=== PATIENT | female | born 1995 | race Two or more races ===

== ENCOUNTER 2020-08-30 17:24 | Emergency (ER) | payer MEDICAID, SELFPAY ==
[2020-08-30 18:05] VITALS: BP 122/72; PULSE 102; RESP 16; TEMP 36.9; O2SAT 100; BMI 21.5
[2020-08-30 18:55] VITALS: BP 106/62; PULSE 88; RESP 18; TEMP 36.9; O2SAT 99
--- NOTE | 2020-08-30 19:26 | ED.GENADULT ---
HPI - General Adult General Chief complaint: General Medical Stated complaint: R/O DVT/Rash Time Seen by Provider: 08/30/20 19:14 Source: patient Mode of arrival: ambulatory Limitations: no limitations History of Present Illness HPI narrative: Patient comes emergency room complaining of a rash her body that is been present for 11 days. Patient states it is very itchy, started in her back and trunk. Patient thought it was due to a new sweater she used. However the hives are not going away. Patient states that now she has hives and itching in her face, groin, and upper thighs bilaterally. Nothing in the lower extremities. Also, patient states that she was seen at [facility] approximately 1 week ago. Patient went there because she had occasional chest pain. According to the patient, all of her blood work came back normal, however they told her that they wanted to do a bilateral Doppler of her lower extremities to rule out DVT. Patient states that her complain was occasional Charley horses at night. Patient states she has never had blood clot issues, no family history of DVTs, no leg swelling, no leg pain other than the muscular cramping at night, no redness, no shortness of breath. Patient states that she has 3 left [facility] 1 week ago, she has not had any chest pain, no leg complaints MD complaint: Rash Related Data Previous Rx's Medication Instructions Recorded cetirizine 10 mg PO DAILY #5 tab 08/30/20 prednisone 50 mg PO DAILY #4 tab 08/30/20 Allergies Allergy/AdvReac Type Severity Reaction Status Date / Time No Known Allergies Allergy Verified 08/30/20 18:12 Review of Systems Review of Systems: Constitutional : No Weight loss, No Fever, No Chills, No Night Sweats, No Fatigue, No Malaise ENT/Mouth : No Hearing loss, No Ear Pain, No Nasal Congestion, No Sinus Pain, No Hoarseness, No sore throat, No Rhinorrhea, No Swallowing Difficulty Eyes: No Eye Pain, No Swelling, No Redness, No Foreign Body, No Discharge, No Vision Changes Cardiovascular : No Chest Pain, No SOB, No Dyspnea on Exertion, No Orthopnea, No Edema, No Palpitations Respiratory : No Cough, No Sputum, No Wheezing, No Smoke Exposure, No Dyspnea Gastrointestinal : No Nausea, No Vomiting, No Diarrhea, No Constipation, No abdominal Pain, No Hematochezia, No Melena Genitourinary : no irregular bleeding, No Dysuria, No Urinary Frequency, No Hematuria, No Urinary Incontinence, No Urgency, No Flank Pain, No Urinary Flow Changes, No Hesitancy Musculoskeletal : No joint pain, No Myalgias, No Joint Swelling Skin : Hives in chest, torso, abdomen, groin Neuro : No Weakness, No Numbness, No Paresthesias, No Loss of Consciousness, No Dizziness, No Headache Psych : No Anxiety/Panic, No Depression, No SI/HI/AH/VH, No Social Issues, Heme/Lymph: No Bruising, No Bleeding,No Lymphadenopathy Endocrine : No Polyuria, No Polydipsia, No Temperature Intolerance [facility] Past Medical History Attestation statement: The following information was validated with the patient. Medical History Pacemaker Seasonal allergies Social History Social History Advance Directives: No Advance Directives Information Provided: Yes Physical Exam Vital Signs: Vital Signs: Last Vital Signs Temp 98.5 F 08/30/20 18:55 Pulse 88 08/30/20 18:55 Resp 18 08/30/20 18:55 BP 106/62 08/30/20 18:55 Pulse Ox 99 08/30/20 18:55 Body Mass Index 21.5 Appearance: Alert. Oriented X3. No acute distress. Eyes: Pupils equal, round and reactive to light. ENT: Pharynx normal. Neck: Normal inspection. Neck supple. No lymph nodes noted. No crepitus CVS: Normal heart rate and rhythm. Pulses normal. Normal S1 and S2 Respiratory: No respiratory distress. Breath sounds normal. No Wheezing. No rales Abdomen: Soft and nontender. No rigidity. No distention. good BS x4 Skin: Skin warm and dry. Multiple scratch armando and the chest, abdomen, back, groins, , patchy and hives like rash as above mentioned Extremities: No lower extremity edema. No lower extremity edema. No Lacerations. No Rash Neuro: Oriented X 3. No motor deficit. No sensory deficit. Moving all extermities. No slurred speech. Course Course Course Narrative: I discussed with the patient that we will go ahead and start prednisone and Benadryl to help her with the itchiness, unlikely that the patient is having a generalized allergic reaction since it has been ongoing for 11 days now, and it is not diffuse. The rash does not resemble bedbug bites or scabies. Also discussed with the patient, the charley horses are not necessarily an indication to get a Doppler ultrasound. Patient has no signs of symptoms of a DVT. Patient's Wells criteria for DVT score is -2 Scores Wells DVT Alternative Dx as likely as or more likely than DVT: -2 Score: -2 2-tier Risk: unlikely risk (5%) 3-tier Risk: low risk (3%) Discharge Plan Discharge Clinical Impression: Rash Patient Disposition: Home, Self-Care Instructions: Acute Rash (ED) Additional Instructions: Please follow-up with your primary care physician tomorrow. If you have any worsening or new symptoms, please return to the emergency room or call 911 Prescriptions: New prednisone 50 mg tablet 50 mg PO DAILY Qty: 4 RF: 0 cetirizine 10 mg tablet 10 mg PO DAILY Qty: 5 RF: 0
[2020-08-30] MEDS: predniSONE 20 MG TABLET 60 MG PO (19:47)
[2020-08-30] MEDS: diphenhydrAMINE HCL 25 MG TABLET 50 MG PO (19:47)
== END 2020-08-30 19:54 | disposition home or self-care (01) ==
PROVIDERS: Emergency Provider Emergency Medicine
DX: R21 Rash and other nonspecific skin eruption (principal); R07.9 Chest pain, unspecified; Z79.899 Other long term (current) drug therapy
CPT/HCPCS: 99283; Q0163

== ENCOUNTER 2020-12-18 09:12 | Outpatient (REF) | payer MEDICAID, SELFPAY ==
--- NOTE | ~2020-12-18 | US_ITS ---
EXAMINATION: US DIAGNOSTIC ULTRASOUND BREAST, RIGHT CLINICAL INFORMATION: 24-year-old with small palpable mass noted by patient superior right breast mid depth for approximately 1 month. No discharge. No recent trauma. No family history breast cancer. No prior breast imaging. Patient has had weight loss over 50 pounds past year. COMPARISON: None. TECHNIQUE: Ultrasound right breast is targeted to the area of clinical concern upper breast. Patient is imaged both supine and upright. Grayscale imaging and color Doppler are performed without and with harmonics. FINDINGS: There is no focal suspicious finding. There is no cystic or solid mass, architectural abnormality, duct ectasia, or edema in the soft tissue planes. Results are discussed with the patient at time of visit. Patient should be managed based on the clinical impression. If clinically indicated, further evaluation may be considered with surgical consult. Decision to proceed with biopsy should be based on clinical grounds and degree of clinical concern. US/US breast RT limited IMPRESSION: Unremarkable. No ultrasound correlate for patient's palpable concern. ASSESSMENT: BI-RADS 1: Negative RECOMMENDATION: Patient should be managed based on the clinical impression. If clinically indicated, further evaluation may be considered with surgical consult. Decision to proceed with biopsy should be based on clinical grounds and degree of clinical concern.
== END 2020-12-18 09:13 | disposition home or self-care (01) ==
LOC: HO.MAMMO 09:12
PROVIDERS: Visit Provider Nurse Practitioner Family
DX: N63.11 Unspecified lump in the right breast, upper outer quadrant (principal)
CPT/HCPCS: 76642

== ENCOUNTER 2021-10-26 15:23 | Emergency (ER) | payer MEDICAID, SELFPAY | END 2021-10-26 16:26 | disposition left against medical advice (07) | PROVIDERS: Emergency Provider Emergency Medicine | DX: S91.14 Puncture wound with foreign body of toe without damage to nail (principal); X58.XXXA Exposure to other specified factors, initial encounter; Y93.9 Activity, unspecified; Y92.9 Unspecified place or not applicable; Y99.9 Unspecified external cause status ==

== ENCOUNTER 2021-10-27 15:22 | Emergency (ER) | payer MEDICAID, SELFPAY ==
[2021-10-27 15:30] VITALS: BP 129/82; PULSE 111; RESP 18; O2SAT 100; BMI 23.8
--- NOTE | 2021-10-27 15:54 | ED.WOUNDLAC ---
HPI - Wound/Laceration General Chief Complaint: Wound/Laceration Stated Complaint: wound/lac on right toe Time Seen by Provider: 10/27/21 15:40 Source: patient Mode of arrival: ambulatory Limitations: no limitations History of Present Illness HPI narrative: 25 y/o female presenting to the ER for evaluation of right great toe pain x1 month. She reports the pain started with a small crack on the medial edge of her toe but the crack has since gotten wider with dark skin in the middle. She also reports redness and pain on the medial aspect of the great toe nail. She is not diabetic. She denies any trauma. She has been using topical athletes foot cream with worsening pain and itching. Onset (ago): week(s) Extremity Location: right: foot Place: home Patient tetanus UTD: Yes Associated symptoms: pain Related Data Previous Rx's Medication Instructions Recorded cetirizine 10 mg tablet 10 mg PO DAILY #5 tab 08/30/20 prednisone 50 mg tablet 50 mg PO DAILY #4 tab 08/30/20 amoxicillin 500 mg-potassium 1 tab PO BID #10 tab 10/27/21 clavulanate 125 mg tablet (Augmentin) mupirocin 2 % topical ointment 1 appl TOPICAL BID #22 g 10/27/21 Allergies Allergy/AdvReac Type Severity Reaction Status Date / Time No Known Allergies Allergy Verified 10/27/21 15:29 Review of Systems Review of Systems: Constitutional: No Fever, No Chills s Cardiovascular: No Chest Pain, No SOB Gastrointestinal: No Nausea, No Vomiting Musculoskeletal: No joint pain, No Myalgias Skin: +Skin Lesions, No rash Neuro: No Weakness, No Numbness Psych: No Anxiety/Panic Heme/Lymph: No Bruising, No Lymphadenopathy PMFSH Past Medical History Medical History Pacemaker Seasonal allergies Social History Social History Advance Directives: No Advance Directives Information Provided: No Physical Exam Vital Signs: Vital Signs: Last Vital Signs Pulse 111 H 10/27/21 15:30 Resp 18 10/27/21 15:30 BP 129/82 10/27/21 15:30 Pulse Ox 100 10/27/21 15:30 BMI result Body Mass Index 23.8 Appearance: Alert. Oriented X3. No acute distress. HEENT: normal inspection CVS: Normal heart rate and rhythm. Pulses normal. Respiratory: No respiratory distress. Skin: Skin warm and dry. Normal skin color. Normal skin turgor. No rashes. Extremities: medial right great toe with callus with cracked skin and hyperpigmented material below, tender to touch. medial great toe nail bed with erythema and tenderness. NV intact. Neuro: Oriented X 3. No motor deficit. No sensory deficit. Course Course Course Narrative: 25-year-old female presenting to the ER with right great toe pain. The skin is cracked and callus at the medial aspect with some erythema of the nail bed. Possible cellulitis. Will give topical and oral treatment. Will refer to her primary care doctor for follow-up. Stable for DC home. Discharge Plan Discharge Clinical Impression: Callus of toe, Cellulitis of great toe Patient Disposition: Home, Self-Care Instructions: Acute Wounds (DC) Additional Instructions: If you develop new or worsening symptoms call 911 or come back to the ER for further evaluation. Prescriptions: New mupirocin 2 % ointment 1 appl topical BID Qty: 22 0RF amoxicillin-pot clavulanate [Augmentin] 500-125 mg tablet 1 tab PO BID Qty: 10 0RF No Action prednisone 50 mg tablet 50 mg PO DAILY Qty: 4 0RF cetirizine 10 mg tablet 10 mg PO DAILY Qty: 5 0RF
== END 2021-10-27 16:30 | disposition home or self-care (01) ==
PROVIDERS: Emergency Provider Emergency Medicine
DX: L84 Corns and callosities (principal); L03.031 Cellulitis of right toe; M79.674 Pain in right toe(s)
CPT/HCPCS: 99283

== ENCOUNTER 2021-12-06 09:21 | Outpatient (RCR) | payer MEDICAID, SELFPAY | END 2022-03-19 10:00 | disposition home or self-care (01) | LOC: HO.WCC 09:21 | PROVIDERS: PCP Internal Medicine; Visit Provider Surgery | DX: S91.101D Unspecified open wound of right great toe without damage to nail, subsequent encounter (principal); L03.032 Cellulitis of left toe; Z79.2 Long term (current) use of antibiotics | CPT/HCPCS: 97597; 99212; 99213 ==

== ENCOUNTER 2022-02-07 12:39 | Inpatient (IN) | payer MEDICAID, SELFPAY ==
--- NOTE | ~2022-02-07 | CT_ITS ---
EXAMINATION: CT FOOT WITH CONTRAST, RIGHT CLINICAL INFORMATION: Cellulitis. Ulcer. Rule out osteomyelitis. COMPARISON: 02/07/2022 radiograph TECHNIQUE: Multidetector volumetric imaging of the right foot performed without IV contrast. Coronal and sagittal reformatted images are obtained and reviewed. This CT examination was performed using dose optimization techniques as appropriate, variously including the following: *Automated exposure control *Adjustment of mA and/or kV according to patient size (this includes techniques or standardized protocols for targeted exams where dose is matched to indication/reason for exam; i.e. extremities or head) *Use of iterative reconstruction technique DLP: 168 mGy-cm FINDINGS: Mild soft tissue swelling of the distal aspect of the first digit. Foci of gas are noted along the nailbed. No osseous erosion. No fractures. Alignment maintained throughout the foot. No fluid collection in the soft tissues. CT/CT foot RT w con IMPRESSION: Mild soft tissue swelling of the first digit. No associated osseous abnormality. No osseous erosion. No fracture.
--- NOTE | ~2022-02-07 | US_ITS ---
EXAMINATION: ANKLE-BRACHIAL INDICES SINGLE LEVEL PULSE VOLUME RECORDING ARTERIAL DUPLEX BILATERAL LEGS CLINICAL INFORMATION: Nonhealing right leg ulcer COMPARISON: None TECHNIQUE: Ankle-brachial indices and PVR at the ankle were obtained. Duplex Doppler of the bilateral lower extremity arterial systems was performed. FINDINGS: RIGHT: Ankle-brachial index: 0.92 PVR: Normal Common femoral: PSV 200 cm/s. Triphasic waveform. Deep femoral: PSV 146 cm/s. Triphasic waveform. Proximal superficial femoral: PSV 163 cm/s. Triphasic waveform. Mid superficial femoral: PSV 131 cm/s. Triphasic waveform. Distal superficial femoral: PSV 93 cm/s. Triphasic waveform. Popliteal: PSV 72 cm/s. Triphasic waveform. Posterior tibial: PSV 128 cm/s. Triphasic waveform. LEFT: Ankle-brachial index: 1.19 PVR: Normal Common femoral: PSV 181 cm/s. Triphasic waveform. Deep femoral: PSV 111 cm/s. Triphasic waveform. Proximal superficial femoral: PSV 120 cm/s. Tricuspid waveform. Mid superficial femoral: PSV 127 cm/s. Triphasic waveform. Distal superficial femoral: PSV 111 cm/s. Triphasic waveform. Popliteal: PSV 65 cm/s. Triphasic waveform. Posterior tibial: PSV 168 cm/s. Triphasic waveform. US/US arterial duplex LE BI IMPRESSION: No convincing evidence of hemodynamically significant peripheral arterial disease. The TRU on the right is 0.92 which is borderline. The TRU on the left is 1.19. There are hyperemic multiphasic waveforms bilaterally which can be seen in small vessel vascular bed dilation (such as cellulitis).
--- NOTE | ~2022-02-07 | CT_ITS ---
EXAMINATION: CT ANGIOGRAM ABDOMEN AND PELVIS WITH RUN-OFF CLINICAL INFORMATION: Nonhealing right lower extremity ulceration. COMPARISON: Noninvasive arterial ultrasound from 02/11/2022 TECHNIQUE: Multiple axial images were obtained through the abdomen, pelvis, and lower extremities following the administration of 100 mL of Omnipaque 350 intravenous contrast. Sagittal, coronal, and MIP oblique sagittal reformatted images were obtained on the CT workstation, uploaded to PACS, and reviewed. Images were evaluated on independent dedicated 3-D workstation and 3-D images were reconstructed with concurrent radiologist supervision and subsequently interpreted. This CT examination was performed using dose optimization techniques as appropriate, variously including the following: *Automated exposure control *Adjustment of mA and/or kV according to patient size (this includes techniques or standardized protocols for targeted exams where dose is matched to indication/reason for exam; i.e. extremities or head) *Use of iterative reconstruction technique DLP: 678 mGy-cm FINDINGS: VASCULATURE: Aorta: Normal in caliber. No significant atherosclerotic plaque. Celiac axis, superior mesenteric artery, inferior mesenteric artery and bilateral renal arteries are patent without significant stenosis. Right iliac arteries: Common iliac, external iliac and internal iliac arteries are patent without significant stenosis. Left iliac arteries: Common iliac, external iliac and internal iliac arteries are patent without significant stenosis. Right lower extremity: Common femoral artery is widely patent without significant stenosis. Superficial femoral artery is patent without significant stenosis. Popliteal artery is patent without significant stenosis. Anterior tibial artery occludes in the distal calf. Posterior tibial artery occludes in the proximal to mid calf. Peroneal artery occludes in the proximal calf. Collateral flow is seen opacifying the plantar arteries of the foot. Dorsalis pedis artery is not visualized Left lower extremity: Common femoral artery is widely patent without significant stenosis. Superficial femoral artery is patent without significant stenosis. Popliteal artery is patent without significant stenosis. Anterior tibial artery is completely occluded throughout the calf. Posterior tibial artery is patent through the calf with patent flow is seen extending into the plantar arteries of the foot. Peroneal artery occludes in the proximal calf NONVASCULAR: Lung bases are clear. Solid abdominal organs are unremarkable. Bowel loops are unremarkable. No free fluid seen in the abdomen and pelvis. Urinary bladder is unremarkable. No pathologic lymphadenopathy or mass lesion seen in the abdomen and pelvis. Osseous structures are intact. CT/CT angio abd aorta runoff IMPRESSION: 1. 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 There is occlusion of the right anterior tibial, posterior tibial and peroneal arteries. There is occlusion of the left anterior tibial and peroneal arteries with patent flow in the left posterior tibial artery 2. No significant atherosclerotic plaque is seen throughout the remaining arterial vessels. The aorta, bilateral iliac, femoral and popliteal arteries are widely patent without stenosis or vessel irregularity
--- NOTE | ~2022-02-07 | US_ITS ---
EXAMINATION: ANKLE-BRACHIAL INDICES SINGLE LEVEL PULSE VOLUME RECORDING ARTERIAL DUPLEX BILATERAL LEGS CLINICAL INFORMATION: Nonhealing right leg ulcer COMPARISON: None TECHNIQUE: Ankle-brachial indices and PVR at the ankle were obtained. Duplex Doppler of the bilateral lower extremity arterial systems was performed. FINDINGS: RIGHT: Ankle-brachial index: 0.92 PVR: Normal Common femoral: PSV 200 cm/s. Triphasic waveform. Deep femoral: PSV 146 cm/s. Triphasic waveform. Proximal superficial femoral: PSV 163 cm/s. Triphasic waveform. Mid superficial femoral: PSV 131 cm/s. Triphasic waveform. Distal superficial femoral: PSV 93 cm/s. Triphasic waveform. Popliteal: PSV 72 cm/s. Triphasic waveform. Posterior tibial: PSV 128 cm/s. Triphasic waveform. LEFT: Ankle-brachial index: 1.19 PVR: Normal Common femoral: PSV 181 cm/s. Triphasic waveform. Deep femoral: PSV 111 cm/s. Triphasic waveform. Proximal superficial femoral: PSV 120 cm/s. Tricuspid waveform. Mid superficial femoral: PSV 127 cm/s. Triphasic waveform. Distal superficial femoral: PSV 111 cm/s. Triphasic waveform. Popliteal: PSV 65 cm/s. Triphasic waveform. Posterior tibial: PSV 168 cm/s. Triphasic waveform. US/US TRU complete IMPRESSION: No convincing evidence of hemodynamically significant peripheral arterial disease. The TRU on the right is 0.92 which is borderline. The TRU on the left is 1.19. There are hyperemic multiphasic waveforms bilaterally which can be seen in small vessel vascular bed dilation (such as cellulitis).
--- NOTE | ~2022-02-07 | XR_ITS ---
EXAMINATION: XR FOOT, RIGHT CLINICAL INFORMATION: Right foot redness with question of osteomyelitis COMPARISON: Left foot radiographs 01/06/2020 TECHNIQUE: AP, lateral, and oblique views of the right foot. FINDINGS: There is soft tissue swelling present around the distal phalanx of the first digit but there are no convincing signs of osteomyelitis. No other abnormalities are seen. XR/XR foot RT 2V IMPRESSION: Soft tissue swelling without evidence of osteomyelitis
[2022-02-07 12:59] VITALS: BP 125/82; PULSE 114; RESP 18; TEMP 36.8; O2SAT 98; BMI 24.7
--- NOTE | 2022-02-07 13:45 | PC.NURSE ---
Pt reports chronic right great toe wound, now spreading to other toes x 3 months. Also reports 2 months ago had debridement and unable to make follow up appt. Wound site marked by wound clinic [facility]. +pedal pulse, warm to touch, red in appearance
[2022-02-07 14:04] LABS: MANUAL DIFF FLAG NO
[2022-02-07 14:07] LABS: Basophils Percent Auto 0.2 % (0-2); Eosinophils Absolute Auto 0.4 X10*3/uL (0.0-0.4); Eosinophils Percent Auto 3.3 % (0-4); Hemoglobin 14.9 g/dl (12.0-16.0); Imm Gran Abs Auto 0.05 X10*3/uL (0.00-0.03); Imm Gran Pct Auto 0.4 % (0.0-0.4); Lymphocytes Absolute Auto 3.2 X10*3/uL (1.2-4.9); Lymphocytes Percent Auto 24.5 % (20-40); Mean Corpuscular HGB Conc 32.4 g/dl (31.0-35.0); Mean Corpuscular Hemoglobin 30.5 pg (27.0-33.0); Mean Corpuscular Volume 94.1 fL (80.0-98.0); Mean Platelet Volume 8.7 fL (9.4-12.3); Monocytes Percent Auto 7.7 % (2-11); Neutrophils Absolute Auto 8.3 x10*3/uL (2.0-8.3); Neutrophils Percent Auto 63.9 % (45-73); Platelet Count 542 X10*3/uL (160-400); Red Blood Count 4.89 X10*6/uL (4.20-5.50); Red Cell Distribution Width 13.5 % (11.0-16.0)
[2022-02-07 14:20] LABS: Alanine Aminotransferase 12 U/L (0-31); Albumin Level 4.9 g/dL (3.5-5.0); Alkaline Phosphatase 89 U/L (39-117); Anion Gap 13 (12-20); Aspartate Amino Transferase 18 U/L (5-31); Bilirubin Total 0.4 mg/dL (0.0-1.0); Blood Urea Nitrogen 9 mg/dL (9-16); C Reactive Protein 0.61 mg/dL (< or = 0.50); Calcium 10.4 mg/dL (8.4-10.2); Carbon Dioxide 28 mmol/L (22-29); Chloride 103 mmol/L (96-108); Creatinine Clr Calc Pharmacy 84.3; Estimated Glomerular Filt Rate > 60; Glucose Random 95 mg/dL (60-115); Potassium 4.2 mmol/L (3.3-5.1); Sodium 140 mmol/L (135-145); Total Protein 8.3 g/dL (6.5-8.0)
[2022-02-07 14:21] LABS: Lactic Acid 1.6 mmol/L (0.5-2.0)
[2022-02-07 14:25] LABS: COVID-19 Test Negative (Negative)
--- NOTE | 2022-02-07 14:37 | ED_ITS ---
HPI - General Adult General Chief complaint: Wound/Laceration Stated complaint: R foot infected Time Seen by Provider: 02/07/22 13:13 Source: patient Mode of arrival: ambulatory Limitations: no limitations History of Present Illness HPI narrative: 26-year-old female presents to the ED for right foot infection. Patient has had a chronic right great toe wound that began as a open callous and fungal and now redness redness or other toes. Patient states foot/toe also warm. Patient denies any history of diabetes or IV drug use. Patient was sent from the ED by Wound physician for further evaluation. Related Data Home Medications Medication Instructions Recorded Confirmed acetaminophen 325 mg tablet 650 mg PO Q6H PRN Pain 02/07/22 02/07/22 aspirin 81 mg chewable tablet 81 mg PO DAILY PRN Pain 02/07/22 02/07/22 cephalexin 500 mg capsule 1 cap PO QID 02/07/22 02/07/22 Allergies Allergy/AdvReac Type Severity Reaction Status Date / Time No Known Allergies Allergy Verified 10/27/21 15:29 Review of Systems Review of Systems: Right foot infection. Yes all other systems are reviewed and are negative [facility] Past Medical History Medical History Complete heart block History of cardiac pacemaker Pacemaker Seasonal allergies Family History Family History Mother Prediabetes Social History Social History Alcohol intake: current Alcohol intake frequency: holidays/special occasions o nly Alcohol type: wine Patient Tobacco Use Status: Never used Tobacco Use of substances other than those prescribed or required for medical reasons: Yes Substance Use Type: Marijuana Advance Directives: No Advance Directives Information Provided: No Patient : No Physical Exam ED Vital Signs: Vital Signs - 24 hr 02/07/22 12:59 02/07/22 14:45 02/07/22 15:32 Temperature 98.3 F 98.4 F 98.2 F Pulse Rate 114 H 84 89 Respiratory Rate 18 16 16 Blood Pressure 125/82 116/69 111/65 Pulse Oximetry 98 99 99 Oxygen Delivery Method Room Air Room Air Room Air 02/07/22 17:34 Temperature Pulse Rate 95 Respiratory Rate 18 Blood Pressure 105/63 Pulse Oximetry 98 Oxygen Delivery Method Room Air BMI result Body Mass Index 24.7 Const General: cooperative, healthy appearing, comfortable, no acute distress, well developed, alert, awake and Physically active Orientation/consciousness: patient oriented x3 [facility] Head: Yes normal to inspection, Yes No palpable skull fracture present, Yes normocephalic, Yes atraumatic and No abrasion Eyes General: appearance normal, both eyes and all related structures Neck Neck: Yes normal visual inspection, Yes full ROM, Yes no lymphadenopathy, Yes no meningeal signs, Yes trachea midline, Yes supple, No anterior neck swelling and No tender Chest Chest palpation & inspection: normal inspection of the chest and normal palpation of entire chest wall Resp Effort & Inspection: normal respiratory effort and able to speak in complete sentences Cardio Jugular venous distension: no JVD Heart sounds: S1 normal heart sound present and S2 normal heart sound present GI Inspection: Yes normal to inspection and No abdominal wall ecchymosis Palpation (GI): Soft to palpation, not firm, nontender, no guarding and not rigid General: No CVA tenderness and Yes no CVA tenderness Back/Spine/Pelvis Back: no CVA tenderness, No CVA tenderness and No back tenderness Skin Other: foot cellulitis Neuro General: patient oriented x3, gait normal, tone normal, no meningeal signs and CN's II-XI intact bilaterally Cranial nerves: Yes CN's II-XII intact bilaterally Extrem Other: Vascular neuro exam intact Psych Appearance: grossly normal, well kempt and not disheveled Course Course Course Narrative: Will send for labs and have foot x-ray. Patient well-appearing Reevaluation(s) Reevaluation #1: Patient admitted to hospitalist for cellulitis. Labs are normal. Negative white blood cell count and x-ray negative for osteomyelitis. Due to dry gangrene. Dr. Farnsworth informed ARACELIS barnhart earlier in the shift she wanted patient admitted for IV antibitiocs. Time: 21:50 Medical Decision Making [facility] Narrative Medical decision making narrative: Cellulitits Lab Data Result diagrams: 02/07/22 13:54 02/07/22 13:54 Labs: Lab Results 02/07/22 02/07/22 02/07/22 Range/Units 13:54 13:54 13:54 WBC 13.0 H (4.8-10.8) X10*3/uL RBC 4.89 (4.20-5.50) X10*6/uL Hgb 14.9 (12.0-16.0) g/dl Hct 46.0 (37.0-47.0) % MCV 94.1 (80.0-98.0) fL MCH 30.5 (27.0-33.0) pg MCHC 32.4 (31.0-35.0) g/dl RDW 13.5 (11.0-16.0) % Plt Count 542 H (160-400) X10*3/uL MPV 8.7 L (9.4-12.3) fL Immature Gran % (Auto) 0.4 (0.0-0.4) % Neut % (Auto) 63.9 (45-73) % Lymph % (Auto) 24.5 (20-40) % [place] % (Auto) 7.7 (2-11) % Eos % (Auto) 3.3 (0-4) % Baso % (Auto) 0.2 (0-2) % Lymph # (Auto) 3.2 (1.2-4.9) X10*3/uL [place] # (Auto) 1.0 (0.1-1.2) X10*3/uL Eos # (Auto) 0.4 (0.0-0.4) X10*3/uL Baso # (Auto) 0.0 (0.0-0.2) X10*3/uL Abs Immat Gran (auto) 0.05 H (0.00-0.03) X10*3/uL Absolute Neuts (auto) 8.3 (2.0-8.3) x10*3/uL Absolute Nucleated RBC 0.000 (0.0-0.012) X10*3/uL Nucleated RBC % (auto) 0.0 (0.0-0.2) /100WBC ESR 10 (0-20) MM/HR Sodium 140 (135-145) mmol/L Potassium 4.2 (3.3-5.1) mmol/L Chloride 103 (96-108) mmol/L Carbon Dioxide 28 (22-29) mmol/L Anion Gap 13 (12-20) BUN 9 (9-16) mg/dL Creatinine 0.87 (0.5-1.4) mg/dL Estim Creat Clear Calc 84.3 Estimated GFR > 60 Random Glucose 95 (60-115) mg/dL Lactic Acid (0.5-2.0) mmol/L Calcium 10.4 H (8.4-10.2) mg/dL Total Bilirubin 0.4 (0.0-1.0) mg/dL AST 18 (5-31) U/L ALT 12 (0-31) U/L Alkaline Phosphatase 89 (39-117) U/L C-Reactive Protein 0.61 H (< or = 0.50) mg/dL Total Protein 8.3 H (6.5-8.0) g/dL Albumin 4.9 (3.5-5.0) g/dL COVID-19 (ANGELO) (Negative) COVID-19 Clin Com 02/07/22 02/07/22 Range/Units 13:54 13:54 WBC (4.8-10.8) X10*3/uL RBC (4.20-5.50) X10*6/uL Hgb (12.0-16.0) g/dl Hct (37.0-47.0) % MCV (80.0-98.0) fL MCH (27.0-33.0) pg MCHC (31.0-35.0) g/dl RDW (11.0-16.0) % Plt Count (160-400) X10*3/uL MPV (9.4-12.3) fL Immature Gran % (Auto) (0.0-0.4) % Neut % (Auto) (45-73) % Lymph % (Auto) (20-40) % [place] % (Auto) (2-11) % Eos % (Auto) (0-4) % Baso % (Auto) (0-2) % Lymph # (Auto) (1.2-4.9) X10*3/uL [place] # (Auto) (0.1-1.2) X10*3/uL Eos # (Auto) (0.0-0.4) X10*3/uL Baso # (Auto) (0.0-0.2) X10*3/uL Abs Immat Gran (auto) (0.00-0.03) X10*3/uL Absolute Neuts (auto) (2.0-8.3) x10*3/uL Absolute Nucleated RBC (0.0-0.012) X10*3/uL Nucleated RBC % (auto) (0.0-0.2) /100WBC ESR (0-20) MM/HR Sodium (135-145) mmol/L Potassium (3.3-5.1) mmol/L Chloride (96-108) mmol/L Carbon Dioxide (22-29) mmol/L Anion Gap (12-20) BUN (9-16) mg/dL Creatinine (0.5-1.4) mg/dL Estim Creat Clear Calc Estimated GFR Random Glucose (60-115) mg/dL Lactic Acid 1.6 (0.5-2.0) mmol/L Calcium (8.4-10.2) mg/dL Total Bilirubin (0.0-1.0) mg/dL AST (5-31) U/L ALT (0-31) U/L Alkaline Phosphatase (39-117) U/L C-Reactive Protein (< or = 0.50) mg/dL Total Protein (6.5-8.0) g/dL Albumin (3.5-5.0) g/dL COVID-19 (ANGELO) Negative (Negative) COVID-19 Clin Com See Note Discharge Plan Discharge Clinical Impression: Cellulitis Patient Disposition: Admitted As Inpatient
[2022-02-07 14:45] VITALS: BP 116/69; PULSE 84; RESP 16; TEMP 36.9; O2SAT 99
[2022-02-07 15:07] LABS: Erythrocyte Sedimentation Rate 10 MM/HR (0-20)
[2022-02-07 15:32] VITALS: BP 111/65; PULSE 89; RESP 16; TEMP 36.8; O2SAT 99
[2022-02-07] MEDS: Piperacillin Sodium/Tazobactam 3.375 GM in 0.9 % Sodium Chloride 50 ML IV ×2 (17:31→23:31)
[2022-02-07 17:34] VITALS: BP 105/63; PULSE 95; RESP 18; O2SAT 98
--- NOTE | 2022-02-07 17:59 | PHA.MEDREC ---
Pharmacy Consult ? Medication Reconciliation Pharmacy has completed the medication reconciliation. Patient reports that she has one day left of cephalexin. She has been taking APAP and ASA for pain PRN. Martha Gale, ZulayD
--- NOTE | 2022-02-07 18:11 | PM.IMHP ---
History of Present Illness Date of Service: 02/07/22 Chief Complaint: foot infection 26yo F with history of heart block s/p PPM at age of 7yo sent in to [facility] ED from the Wound Clinic due to concern of R foot infection requiring IV antibiotics. This all started 7 months ago with a laceration to the medial R 1st toe that she was advised to close with Super Glue. Since then, she developed wound there that drains clear yellow liquid and now is covered with dry eschar. She has taken 3 courses of oral antibiotics for infection of the area, most recently cephalexin. Over the last 3 weeks, she has had worsening redness of the R 1st toe that has spread to her forefoot as well as to her 2nd through 5th toes. Her other foot and hands are completely normal. Denies DM2, neuropathy, or IDU. No fever, chills, nausea, or vomiting. In the ED, a plain film showed no evidence of osteomyelitis. Blood cultures were drawn and she was given IV vancomycin and piperacillin-tazobactam. WBC was elevated at 13.0 but she was not sepitc. Review of Systems Review of Systems: Yes all other systems are reviewed and are negative [facility] Medical History Complete heart block History of cardiac pacemaker Pacemaker Seasonal allergies Family History Mother Prediabetes Social History Alcohol intake: current Alcohol intake frequency: holidays/special occasions only Alcohol type: wine Patient Tobacco Use Status: Never used Tobacco Use of substances other than those prescribed or required for medical reasons: Yes Substance Use Type: Marijuana Advance Directives: No Advance Directives Information Provided: No Patient : No Meds Allergies Allergy/AdvReac Type Severity Reaction Status Date / Time No Known Allergies Allergy Verified 10/27/21 15:29 Active Medications: Current Medications Acetaminophen (Acetaminophen 325 Mg Tablet) 650 mg PO Q6H PRN PRN Reason: Pain, Mild (Pain Scale 1-3) Vancomycin HCl 1,500 mg/ (Sodium Chloride) 500 mls @ 333.333 mls/hr IV ONCE ONE Stop: 02/07/22 18:46 Piperacillin Sod/Tazobactam (Sod 3.375 gm/ Sodium Chloride) 50 mls @ 100 mls/hr IV Q6H [facility] Ondansetron HCl (Ondansetron Hcl 4 Mg/2 Ml Vial) 4 mg IVPUSH Q8H PRN PRN Reason: Nausea and Vomiting Pharmacy Consult (Consult Rx Vancomycin Dosing) 1 each MISCELLANE DAILY PRN PRN Reason: Consult order Sodium Chloride (0.9 % Sodium Chloride Flush 3 Ml Syringe) 3 ml IVFLUSH QSHIFT [facility] Home Medications Medication Instructions Recorded Confirmed Last Taken Type acetaminophen 325 mg tablet 650 mg PO Q6H PRN Pain 02/07/22 02/07/22 Unknown History aspirin 81 mg chewable tablet 81 mg PO DAILY PRN Pain 02/07/22 02/07/22 Unknown History cephalexin 500 mg capsule 1 cap PO QID 02/07/22 02/07/22 02/06/22 History Physical Exam Vital Signs and Narrative: Vital Signs: Last Vital Signs Temp 98.2 F 02/07/22 15:32 Pulse 95 02/07/22 17:34 Resp 18 02/07/22 17:34 BP 105/63 02/07/22 17:34 Pulse Ox 98 02/07/22 17:34 O2 Del Method 02/07/22 17:34 BMI result Body Mass Index 24.7 Gen: in no acute distress HEENT: sclera anicteric, moist mucus membranes Neck: supple Lungs: clear to auscultation bilaterally Heart: regular rate and rhythm, no murmurs Abd: soft, non-tender, non-distended Ext: no edema Skin: dry eschar to R mediall 1st toe, erythema/tenderness of 1st toe + medial forefoot, as well as distal 2/3 of toes 2-5 Neuro: alert and oriented x3, no focal findings Psych: appropriate affect Results Labs CBC and Chem 7: 02/07/22 13:54 02/07/22 13:54 Labs: Laboratory Results - last 24 hr 02/07/22 02/07/22 02/07/22 13:54 13:54 13:54 MCV 94.1 MCH 30.5 MCHC 32.4 RDW 13.5 Plt Count 542 H MPV 8.7 L Immature Gran % (Auto) 0.4 Neut % (Auto) 63.9 Lymph % (Auto) 24.5 [place] % (Auto) 7.7 Eos % (Auto) 3.3 Baso % (Auto) 0.2 Lymph # (Auto) 3.2 [place] # (Auto) 1.0 Eos # (Auto) 0.4 Baso # (Auto) 0.0 Abs Immat Gran (auto) 0.05 H Absolute Neuts (auto) 8.3 Absolute Nucleated RBC 0.000 Nucleated RBC % (auto) 0.0 ESR 10 Anion Gap 13 Estim Creat Clear Calc 84.3 Estimated GFR > 60 Random Glucose 95 Lactic Acid Calcium 10.4 H Total Bilirubin 0.4 AST 18 ALT 12 Alkaline Phosphatase 89 C-Reactive Protein 0.61 H Total Protein 8.3 H Albumin 4.9 COVID-19 (ANGELO) COVID-19 Clin Com 02/07/22 02/07/22 13:54 13:54 MCV MCH MCHC RDW Plt Count MPV Immature Gran % (Auto) Neut % (Auto) Lymph % (Auto) [place] % (Auto) Eos % (Auto) Baso % (Auto) Lymph # (Auto) [place] # (Auto) Eos # (Auto) Baso # (Auto) Abs Immat Gran (auto) Absolute Neuts (auto) Absolute Nucleated RBC Nucleated RBC % (auto) ESR Anion Gap Estim Creat Clear Calc Estimated GFR Random Glucose Lactic Acid 1.6 Calcium Total Bilirubin AST ALT Alkaline Phosphatase C-Reactive Protein Total Protein Albumin COVID-19 (ANGELO) Negative COVID-19 Clin Com See Note Imaging Radiologist's Impressions: Impressions Foot X-Ray 02/07/22 14:08 IMPRESSION: Soft tissue swelling without evidence of osteomyelitis Assessment and Plan (1) Cellulitis: Status: Acute Plan 26yo nondiabetic F with 7-month history of chronic traumatic R 1st toe wound that has developed worsening cellulitis involving the other toes as well - admit to M/S - follow BCx - obtain contrast CT of foot [pacemaker is not MRI-safe] - continue piperacillin/tazobactam + vancomycin - consult ID + Gen Surg VTE prophylaxis: low risk: early ambulation + SCDs code status: full I anticipate that the patient will stay at least 2 midnights in hospital due to the above reasons. It is neither reasonable nor safe to care for them in a less acute setting. Quality Stroke Does the patient have a stroke diagnosis?: No VTE Prior VTE?: No VTE Risk Level:: Medical - low VTE Device Contraindication: N/A - Device Ordered VTE Drug Contraindication: Treatment Not Indicated
[2022-02-07] MEDS: vancomycin HCL 1,500 MG in 0.9 % Sodium Chloride 500 ML 333.33 MG IV (18:33)
--- NOTE | 2022-02-07 18:35 | PHA.PROG ---
Admission Date/Time: Indication: Skin Infection Weight in k.235 kg Adjusted body weight in K.2 kg [place] body weight in K.5 kg Obesity Dosing Indication % IBW: 120 % Serum Creatinine - Last 168 Hours 02/07/22 13:54 Creatinine 0.87 Estimated CrCl and GFR - Last 168 Hours 02/07/22 13:54 Estim Creat Clear Calc 84.3 Estimated GFR > 60 Vancomycin Loading Dose: 1500 mg Current Vancomycin Dosing Regimen: 1000 mg Q12H Date and Time for next Vancomycin Level to be drawn: 02/09 @ 0500 Pharmacist Comments on Vancomycin Plan: Patient schedule to give loading dose vancomycin 1500 mg in the ED 02/07 @ 1830. Maintenance dose vancomycin 1000 mg Q12H to begin in 12 hours on 02/08 @ 0700. Expected AUC 531 with a trough of 16. Trough to be drawn prior to 4th dose Pharmacy will monitor renal function daily. Martha Gale, [place] Vancomycin dosing will take advantage of [employer] as a clinical decision support tool that uses Bayesian modeling to calculate individual patient's pharmacokinetic parameters and forecast the patient's drug concentration time course with the target goal AUC 24 range of 400 - 600 mg/L/hr.
[2022-02-07 19:35] LABS: Lactic Acid 0.7 mmol/L (0.5-2.0)
[2022-02-07] MEDS: iohexoL 350 MG/ML 100 ML INFUS..BTL IV (19:49)
[2022-02-07] MEDS: Acetaminophen 325 MG TABLET 650 MG PO (20:22)
--- NOTE | 2022-02-07 21:54 | MHC.CM.PN ---
CM met with admitted patient with bed assignment pending. Pt teary when discussing her foot and the treatments she has been undergoing for the past 7 months. C/O increasing pain. RN aware. Lives with grandmother. Pt is 26 years old. Has pacemaker. Complete heart block at 7 y/o. Patient at wound care presently. No DME/services. No covid vaccination. Declines HCP at this time. Unemployed. D/C plan: home with continuing wound care if needed. Family to provide transportation.
[2022-02-07 21:58] VITALS: RESP 16
[2022-02-07] MEDS: HYDROmorphone HCl 0.5 MG/0.5 ML SYRINGE IVPUSH (21:58)
[2022-02-07 23:26] VITALS: BP 128/87; PULSE 74; RESP 16; TEMP 36.6; O2SAT 100
[2022-02-07] MEDS: 0.9 % Sodium Chloride Flush 3 ML SYRINGE IVFLUSH (23:31)
[2022-02-08 02:07] VITALS: RESP 16
[2022-02-08] MEDS: HYDROmorphone HCl 0.5 MG/0.5 ML SYRINGE IVPUSH ×5 (02:07→22:40)
[2022-02-08] MEDS: Acetaminophen 325 MG TABLET 650 MG PO ×4 (03:45→22:40)
[2022-02-08] MEDS: Piperacillin Sodium/Tazobactam 3.375 GM in 0.9 % Sodium Chloride 50 ML IV ×2 (05:30→11:55)
[2022-02-08 06:43] LABS: Creatinine Clr Calc Pharmacy 96.6; Estimated Glomerular Filt Rate > 60
[2022-02-08 06:55] LABS: Estimated Average Glucose 94 mg/dL; Hemoglobin A1c % 4.9 %
[2022-02-08 08:42] VITALS: BP 129/65; PULSE 76; RESP 16; TEMP 36.3; O2SAT 97
[2022-02-08] MEDS: vancomycin HCL 1,000 MG in 0.9 % Sodium Chloride 250 ML 270 MG IV ×2 (08:56→18:29)
[2022-02-08] MEDS: 0.9 % Sodium Chloride Flush 3 ML SYRINGE IVFLUSH ×3 (08:56→22:46)
--- NOTE | 2022-02-08 11:51 | HO.PM.IMPN ---
Subjective Subjective Date of Service: 02/08/22 Interval History: cc: right toe ulcer interval history:redness improved Cardiovascular Cardiovascular: Reports no additional cardiovascular complaints Respiratory Respiratory: Reports no additional respiratory complaints Physical Exam Vital Signs: Vital Signs: Last Vital Signs Temp 97.3 F 02/08/22 08:42 Pulse 76 02/08/22 08:42 Resp 16 02/08/22 08:42 BP 129/65 02/08/22 08:42 Pulse Ox 97 02/08/22 08:42 O2 Del Method 02/08/22 08:42 BMI result Body Mass Index 24.7 General: AO X 3, no acute distress Resp: CTA bilateral, no accessory muscles used CVS: S1,S2,RRR GI: soft, non tender, non distended Neuro: motor grossly intact, alert Psych: appropriate affect, appropriate insight ?dry eschar to R mediall 1st toe, erythema improved /tenderness of 1st toe + medial forefoot, as well as distal 2/3 of toes 2-5 Objective Data Active Medications Acetaminophen (Acetaminophen 325 Mg Tablet) 650 mg PO Q6H PRN PRN Reason: Pain, Mild (Pain Scale 1-3) Last Admin: 02/08/22 08:57 Dose: 650 mg Documented By: MAHI Hydromorphone HCl (Hydromorphone Hcl 0.5 Mg/0.5 Ml Syringe) 0.5 mg IVPUSH Q4H PRN; Protocol PRN Reason: Breakthrough Pain Last Admin: 02/08/22 06:02 Dose: 0.5 mg Documented By: RICKI Vancomycin HCl 1,000 mg/ (Sodium Chloride) 270 mls @ 270 mls/hr IV Q12H [facility] Last Admin: 02/08/22 08:56 Dose: 270 mls/hr Documented By: MAHI Piperacillin Sod/Tazobactam (Sod 3.375 gm/ Sodium Chloride) 50 mls @ 100 mls/hr IV Q6H [facility] Last Infusion: 02/08/22 06:14 Dose: 100 mls/hr Documented By: RICKI Ondansetron HCl (Ondansetron Hcl 4 Mg/2 Ml Vial) 4 mg IVPUSH Q8H PRN PRN Reason: Nausea and Vomiting Pharmacy Consult (Consult Rx Vancomycin Dosing) 1 each MISCELLANE DAILY PRN PRN Reason: Consult order Sodium Chloride (0.9 % Sodium Chloride Flush 3 Ml Syringe) 3 ml IVFLUSH QSHIFT [facility] Last Admin: 02/08/22 08:56 Dose: 3 ml Documented By: MAHI Labs CBC & Chem 7: 02/07/22 13:54 02/08/22 05:52 Labs: Laboratory Results - last 24 hr 02/07/22 02/07/22 02/07/22 13:54 13:54 13:54 MCV 94.1 MCH 30.5 MCHC 32.4 RDW 13.5 Plt Count 542 H MPV 8.7 L Immature Gran % (Auto) 0.4 Neut % (Auto) 63.9 Lymph % (Auto) 24.5 [place] % (Auto) 7.7 Eos % (Auto) 3.3 Baso % (Auto) 0.2 Lymph # (Auto) 3.2 [place] # (Auto) 1.0 Eos # (Auto) 0.4 Baso # (Auto) 0.0 Abs Immat Gran (auto) 0.05 H Absolute Neuts (auto) 8.3 Absolute Nucleated RBC 0.000 Nucleated RBC % (auto) 0.0 ESR 10 Anion Gap 13 Estim Creat Clear Calc 84.3 Estimated GFR > 60 Random Glucose 95 Estimat Average Glucose Hemoglobin A1c % Lactic Acid Calcium 10.4 H Total Bilirubin 0.4 AST 18 ALT 12 Alkaline Phosphatase 89 C-Reactive Protein 0.61 H Total Protein 8.3 H Albumin 4.9 COVID-19 (ANGELO) COVID-19 Clin Com 02/07/22 02/07/22 02/07/22 13:54 13:54 13:54 MCV MCH MCHC RDW Plt Count MPV Immature Gran % (Auto) Neut % (Auto) Lymph % (Auto) [place] % (Auto) Eos % (Auto) Baso % (Auto) Lymph # (Auto) [place] # (Auto) Eos # (Auto) Baso # (Auto) Abs Immat Gran (auto) Absolute Neuts (auto) Absolute Nucleated RBC Nucleated RBC % (auto) ESR Anion Gap Estim Creat Clear Calc Estimated GFR Random Glucose Estimat Average Glucose 94 Hemoglobin A1c % 4.9 Lactic Acid 1.6 Calcium Total Bilirubin AST ALT Alkaline Phosphatase C-Reactive Protein Total Protein Albumin COVID-19 (ANGELO) Negative COVID-19 Clin Com See Note 02/07/22 02/08/22 19:14 05:52 MCV MCH MCHC RDW Plt Count MPV Immature Gran % (Auto) Neut % (Auto) Lymph % (Auto) [place] % (Auto) Eos % (Auto) Baso % (Auto) Lymph # (Auto) [place] # (Auto) Eos # (Auto) Baso # (Auto) Abs Immat Gran (auto) Absolute Neuts (auto) Absolute Nucleated RBC Nucleated RBC % (auto) ESR Anion Gap Estim Creat Clear Calc 96.6 Estimated GFR > 60 Random Glucose Estimat Average Glucose Hemoglobin A1c % Lactic Acid 0.7 Calcium Total Bilirubin AST ALT Alkaline Phosphatase C-Reactive Protein Total Protein Albumin COVID-19 (ANGELO) COVID-19 Clin Com Assessment and Plan (1) Cellulitis: Status: Acute Plan 26F presented with erythema surrounding non healing ulcer non healing ulcer with surrounding cellulitis vancgirish follow up cultures Id and surgery to see reason for continued hospitalization:ongoing iv abx Quality Stroke Does the patient have a stroke diagnosis?: No VTE Prior VTE?: No VTE Risk Level:: Medical - low VTE Device Contraindication: N/A - Device Ordered VTE Drug Contraindication: Treatment Not Indicated
--- NOTE | 2022-02-08 12:00 | PC.NURSE ---
REPORT GIVEN TO YEN KIM. PT WILL BE TRANSPORTED TO [facility] BY TECH. PT AWARE OF PLAN.
[2022-02-08 12:28] VITALS: BP 141/58; PULSE 84; RESP 18; TEMP 36.6; O2SAT 100
--- NOTE | 2022-02-08 14:02 | W.PM.IDCN ---
History of Present Illness Data of Consult Service Date: 02/08/22 Requesting physician: Byron Rayo Primary Care Provider: Elmira Recio MD [facility] Reason for consult: refractory right foot ulcer She presents to hospital with discomfort right great toe for wound care. She has ulcer over area as well as redness extending from area. She said this started as cut on foot near first toe in August. Area became red and saw PCP and was told to put superglue and take antibiotics Area did not heal. She went to ER in November and received Augmentin with no improvement. She denies bowel disorder,cocaine use or manipulating area. Review of Systems Review of Systems: Yes all other systems are reviewed and are negative [facility] Past Medical History Medical History (Updated 02/08/22 @ 14:07 by Daily Long MD) Complete heart block Foot lesion History of cardiac pacemaker Pacemaker Seasonal allergies Family History Family History Mother Prediabetes Family history: reviewed and not pertinent Social History Social History Household Members: Family Housing: Apartment Do you presently have visiting nurse or other home services: No Alcohol intake: current Alcohol intake frequency: holidays/special occasions only Alcohol type: wine Patient Tobacco Use Status: Never used Tobacco Use of substances other than those prescribed or required for medical reasons: Yes Substance Use Type: Marijuana Substance Use Frequency: Daily Currently Displaying Signs/Symptoms of Drug Intoxication Withdrawal: No Any prior treatment program specific to substance use: No Have you been hit, kicked, punched, or otherwise hurt by someone within the past year? If so, by whom?: No Is there a partner from a previous relationship who is making you feel unsafe now?: No Are you made to feel afraid or neglected: No Advance Directives: No Advance Directives Information Provided: No Do you have thoughts of harming others: None Do you have a plan to hurt others: No Plan Recently lost weight without trying: Yes How much weight loss: 14-23 pounds Eating poorly because of decreased appetite: Yes Nutrition screen score: 5 Patient : No : No Poor oral hygiene: No service: No Current occupational status: unemployed Meds Allergies Allergy/AdvReac Type Severity Reaction Status Date / Time No Known Allergies Allergy Verified 10/27/21 15:29 Active Medications: Current Medications Acetaminophen (Acetaminophen 325 Mg Tablet) 650 mg PO Q6H PRN PRN Reason: Pain, Mild (Pain Scale 1-3) Last Admin: 02/08/22 08:57 Dose: 650 mg Hydromorphone HCl (Hydromorphone Hcl 0.5 Mg/0.5 Ml Syringe) 0.5 mg IVPUSH Q4H PRN; Protocol PRN Reason: Breakthrough Pain Last Admin: 02/08/22 11:55 Dose: 0.5 mg Vancomycin HCl 1,000 mg/ (Sodium Chloride) 270 mls @ 270 mls/hr IV Q12H [facility] Last Infusion: 02/08/22 12:00 Dose: Infused Piperacillin Sod/Tazobactam (Sod 3.375 gm/ Sodium Chloride) 50 mls @ 100 mls/hr IV Q6H [facility] Last Infusion: 02/08/22 12:36 Dose: Infused Ondansetron HCl (Ondansetron Hcl 4 Mg/2 Ml Vial) 4 mg IVPUSH Q8H PRN PRN Reason: Nausea and Vomiting Pharmacy Consult (Consult Rx Vancomycin Dosing) 1 each MISCELLANE DAILY PRN PRN Reason: Consult order Sodium Chloride (0.9 % Sodium Chloride Flush 3 Ml Syringe) [facility] Admin: 02/08/22 08:56 Dose: 3 ml Home Medications Medication Instructions Recorded Confirmed Last Taken Type acetaminophen 325 mg tablet 650 mg PO Q6H PRN Pain 02/07/22 02/07/22 Unknown History aspirin 81 mg chewable tablet 81 mg PO DAILY PRN Pain 02/07/22 02/07/22 Unknown History cephalexin 500 mg capsule 1 cap PO QID 02/07/22 02/07/22 02/06/22 History Physical Exam Vital Signs: Vital Signs: Last Vital Signs Temp 97.8 F 02/08/22 12:28 Pulse 84 02/08/22 12:28 Resp 18 02/08/22 12:28 BP 141/58 H 02/08/22 12:28 Pulse Ox 100 02/08/22 12:28 O2 Del Method 02/08/22 12:28 BMI result Body Mass Index 24.7 Const: General: cooperative HEENT: Head: Yes normal to inspection Face and sinus: Yes normal facial exam Mouth: Normal oral and palatal mucosa present Teeth and gingiva: dentition normal Eyes: General: appearance normal, both eyes and all related structures Pupils: Equal, round and reactive pupils present Resp: Effort & Inspection: normal respiratory effort Cardio: Rate: regular rate Rhythm: regular rhythm GI: Palpation (GI): Soft to palpation and nontender : General: Yes no CVA tenderness Back/Spine/Pelvis: Back: no CVA tenderness Skin: General skin exam: no rashes or lesions noted Neuro: General: moves all extremities Cranial nerves: Yes Equal, round and reactive pupils present Extrem: Other: eschar and dark area great toe with surrounding erythema,membranous area General: Yes normal to inspection Psych: Appearance: grossly normal Results Labs CBC & Chem 7: 02/07/22 13:54 02/08/22 05:52 Labs: Short CBC 02/07/22 Range/Units 13:54 WBC 13.0 H (4.8-10.8) X10*3/uL Hgb 14.9 (12.0-16.0) g/dl Hct 46.0 (37.0-47.0) % Plt Count 542 H (160-400) X10*3/uL BMP 02/07/22 02/08/22 13:54 05:52 Sodium 140 Potassium 4.2 Chloride 103 Carbon Dioxide 28 BUN 9 Creatinine 0.87 0.76 Calcium 10.4 H Liver Function 02/07/22 Range/Units 13:54 Total Bilirubin 0.4 (0.0-1.0) mg/dL AST 18 (5-31) U/L ALT 12 (0-31) U/L Alkaline Phosphatase 89 (39-117) U/L Albumin 4.9 (3.5-5.0) g/dL Assessment and Plan (1) Foot lesion: Status: Acute This is longstanding foot lesion She has had area for seven months so doubtful primary bacterial infection. Possibilities include pyoderma gangrenosum,fungus,cocaine with levamisole induced lesion(patient denies drug use),hepatitis ,granulomatosis with angiitis or other vasculitis or RA Plan Culture and biopsy if able with vascular assessment per Surgery Stop IV Zosyn and continue Vancomycin Doxycycline antiinflammatory and IV steroids Check GC,HIV ,Hepatitis B and C,anca,ESR,Rheumatoid factor, IgA (monoclonal gammopathy) If improves topical steroids and follow Dermatology
[2022-02-08] MEDS: methylPREDNISolone Sod Succ 125 MG/2 ML VIAL 60 MG IVPUSH (14:55)
[2022-02-08] MEDS: Doxycycline Hyclate 100 MG in 0.9 % Sodium Chloride 250 ML 166.67 MG IV (14:56)
[2022-02-08 15:33] LABS: Amphetamine Screen Urine Not Detected (Not Detect); Barbiturates, Urine Not Detected (Not Detect); Benzodiazepines Screen Urine Not Detected (Not Detect); Cannabinoid Screen Urine POSITIVE (Not Detect); Cocaine Screen Urine Not Detected (Not Detect); Fentanyl, urine Not Detected (Not Detect); Opiate Screen Urine Not Detected (Not Detect); Phencyclidine Screen Urine Not Detected (Not Detect)
[2022-02-08 16:00] VITALS: BP 131/81; PULSE 80; RESP 17; TEMP 36.1; O2SAT 100
[2022-02-08 20:00] VITALS: BP 129/74; PULSE 83; RESP 17; TEMP 36.1; O2SAT 100
[2022-02-08 22:54] VITALS: BP 131/81; PULSE 87; RESP 16; TEMP 36.4; O2SAT 98
[2022-02-09 02:55] VITALS: BP 132/76; PULSE 97; RESP 16; TEMP 36.2; O2SAT 100
[2022-02-09] MEDS: Doxycycline Hyclate 100 MG in 0.9 % Sodium Chloride 250 ML 166.67 MG IV ×2 (03:13→13:46)
[2022-02-09] MEDS: methylPREDNISolone Sod Succ 125 MG/2 ML VIAL 60 MG IVPUSH ×2 (03:14→15:26)
[2022-02-09] MEDS: HYDROmorphone HCl 0.5 MG/0.5 ML SYRINGE IVPUSH ×5 (03:17→20:08)
[2022-02-09 04:32] LABS: CT PCR NOT DETECTED (Not Detect.); NG PCR NOT DETECTED (Not Detect.)
[2022-02-09] MEDS: Acetaminophen 325 MG TABLET 650 MG PO ×2 (05:01→15:26)
[2022-02-09 05:09] LABS: Creatinine Clr Calc Pharmacy 100.6; Estimated Glomerular Filt Rate > 60
[2022-02-09 05:16] LABS: Vancomycin Trough 7.7 mcg/mL (10.0-20.0)
[2022-02-09] MEDS: vancomycin HCL 1,000 MG in 0.9 % Sodium Chloride 250 ML 270 MG IV ×3 (06:53→22:36)
[2022-02-09] MEDS: 0.9 % Sodium Chloride Flush 3 ML SYRINGE IVFLUSH ×2 (07:44→15:27)
[2022-02-09 07:54] VITALS: BP 130/72; PULSE 95; TEMP 36.4; O2SAT 98
--- NOTE | 2022-02-09 09:13 | P.CONGS_ITS ---
History of Present Illness Consult details Consult date: 02/09/22 Narrative: 26 year old female presenting for evaluation of a right great toe infection. The lesion started approximately 7 months ago as a small cut on the dorsal surface of the great toe. She initially treated this with super glue apparently developed into an infection which did not respond to oral antibiotics. She has subsequently been followed by care in which serial debridements have been performed. She subsequently developed increased redness in the great toe extending to the toes of the right foot. She is admitted to the hospitalist service for IV antibiotics. She denies significant discharge but does report pain when the foot is touched. She reports pain in the hands and feet when the weather is cold. She denies a history of diabetes. Review of Systems Review of Systems: Yes all other systems are reviewed and are negative Constitutional: Constitutional: Denies chills, Denies fever(s), Denies headache(s), Denies poor appetite and Denies weakness ENT: Denies headache(s) Cardiovascular: Cardiovascular: Denies chest pain, Denies irregular heart rhythm, Denies palpitations and Denies dyspnea Comments: pacemaker for complete heart block Respiratory: Respiratory: Denies cough, Denies excessive phlegm production and Denies dyspnea Gastrointestinal: Gastrointestinal: Denies abdominal pain, Denies bloating, Denies change in bowel habits, Denies constipation, Denies heartburn, Denies diarrhea, Denies nausea and Denies vomiting Genitourinary: Genitourinary: Denies urinary frequency Musculoskeletal: Musculoskeletal: Reports as per HPI, Denies back pain, Denies muscle weakness and Denies numbness Integumentary/Breasts: Skin/Breast: Reports as per HPI, Denies changing lesions, Reports skin ulcer and Denies unusual bruising Neurologic: Denies headache(s), Denies numbness, Denies paresthesias and Denies weakness Psychiatric: Psychiatric: Denies anxiety and Denies depression Endocrine: Endocrine: Denies palpitations Hematologic/Lymphatic: Hematologic/Lymphatic: Denies lymphadenopathy PMFSH Past Medical History Medical History Complete heart block Foot lesion History of cardiac pacemaker Pacemaker Seasonal allergies Family History Family History Mother Prediabetes Family history: reviewed and not pertinent Social History Social History Household Members: Family Housing: Apartment Do you presently have visiting nurse or other home services: No Alcohol intake: current Alcohol intake frequency: holidays/special occasions only Alcohol type: wine Patient Tobacco Use Status: Never used Tobacco Use of substances other than those prescribed or required for medical reasons: Yes Substance Use Type: Marijuana Substance Use Frequency: Daily Currently Displaying Signs/Symptoms of Drug Intoxication Withdrawal: No Any prior treatment program specific to substance use: No Have you been hit, kicked, punched, or otherwise hurt by someone within the past year? If so, by whom?: No Is there a partner from a previous relationship who is making you feel unsafe now?: No Are you made to feel afraid or neglected: No Advance Directives: No Advance Directives Information Provided: No Do you have thoughts of harming others: None Do you have a plan to hurt others: No Plan Recently lost weight without trying: Yes How much weight loss: 14-23 pounds Eating poorly because of decreased appetite: Yes Nutrition screen score: 5 Patient : No : No Poor oral hygiene: No service: No Current occupational status: unemployed Meds Allergies Allergy/AdvReac Type Severity Reaction Status Date / Time No Known Allergies Allergy Verified 10/27/21 15:29 Active Medications: Current Medications Acetaminophen (Acetaminophen 325 Mg Tablet) 650 mg PO Q6H PRN PRN Reason: Pain, Mild (Pain Scale 1-3) Last Admin: 02/09/22 05:01 Dose: 650 mg Hydromorphone HCl (Hydromorphone Hcl 0.5 Mg/0.5 Ml Syringe) 0.5 mg IVPUSH Q4H PRN; Protocol PRN Reason: Breakthrough Pain Last Admin: 02/09/22 07:43 Dose: 0.5 mg Doxycycline Hyclate 100 mg/ (Sodium Chloride) 250 mls @ 166.67 mls/hr IV Q12H [facility] Last Infusion: 02/09/22 05:05 Dose: Infused Vancomycin HCl 1,000 mg/ (Sodium Chloride) 270 mls @ 270 mls/hr IV Q8H [facility] Last Infusion: 02/09/22 08:23 Dose: Infused Methylprednisolone Sodium Succinate (Methylprednisolone Sod Succ 125 Mg/2 Ml Vial) 60 mg IVPUSH Q12H [facility] Last Admin: 02/09/22 03:14 Dose: 60 mg Ondansetron HCl (Ondansetron Hcl 4 Mg/2 Ml Vial) 4 mg IVPUSH Q8H PRN PRN Reason: Nausea and Vomiting Pharmacy Consult (Consult Rx Vancomycin Dosing) 1 each MISCELLANE DAILY PRN PRN Reason: Consult order Sodium Chloride (0.9 % Sodium Chloride Flush 3 Ml Syringe) 3 ml IVFLUSH QSHIFT [facility] Last Admin: 02/09/22 07:44 Dose: 3 ml Home Medications Medication Instructions Recorded Confirmed Last Taken Type acetaminophen 325 mg tablet 650 mg PO Q6H PRN Pain 02/07/22 02/07/22 Unknown History aspirin 81 mg chewable tablet 81 mg PO DAILY PRN Pain 02/07/22 02/07/22 Unknown History cephalexin 500 mg capsule 1 cap PO QID 02/07/22 02/07/22 02/06/22 History Physical Exam Vital Signs: Vital Signs: Last Vital Signs Temp 97.6 F 02/09/22 07:54 Pulse 95 02/09/22 07:54 Resp 16 02/09/22 02:55 BP 130/72 02/09/22 07:54 Pulse Ox 98 02/09/22 07:54 O2 Del Method 02/09/22 07:54 BMI result Body Mass Index 24.7 Const: General: cooperative and no acute distress Nutritional Appearance: well nourished Orientation/consciousness: patient oriented x3 Limitations: no limitations HEENT: Head: Yes normocephalic and Yes atraumatic Ears: hearing grossly normal bilaterally Resp: Effort & Inspection: normal respiratory effort, no audible wheezes, no cough and no respiratory distress Cardio: Jugular venous distension: no JVD GI: Inspection: Yes normal to inspection Skin: Other: Warm, dry, no rash Neuro: General: patient oriented x3 Extrem: Other: Right great toe with an area of callus/ulceration, dry involving the distal phalanx with erythema extending up the foot to involve the distal metatarsal region. General: Yes no clubbing, cyanosis or edema Ankle/foot/toe images: 1. Erythema margin 2. Area of ulceration Results Labs Result diagrams: 02/07/22 13:54 02/09/22 04:47 Labs: Abnormal lab results 02/08/22 02/09/22 Range/Units Unknown 04:47 Vancomycin Trough 7.7 L (10.0-20.0) mcg/mL U Marijuana (THC) Screen POSITIVE H (Not Detect) BMP 02/09/22 04:47 Creatinine 0.73 All other labs normal. Imaging Additional studies: CT right foot: CT/CT foot RT w con IMPRESSION: Mild soft tissue swelling of the first digit. No associated osseous abnormality. No osseous erosion. No fracture.? ? Assessment and Plan (1) Foot lesion: Status: Acute (2) Cellulitis: Status: Acute Plan 26-year-old female patient with a nonhealing wound of the right great toe, obviously very unusual for such a young person. Suspect microvascular disease resulting in delayed healing. Patient is not diabetic but does report symptoms of severe cold intolerance involving the hands and feet, perhaps collagen vascular disease, SLE? No abscess or osteo on xray/ CT. Continue IV antibiotics. May need debridement although I am concerned she will not be able to heal the open wound. Will follow along during her hospitalization. Procedures Date of Service Date of Service: 02/09/22
--- NOTE | 2022-02-09 10:02 | HE.PHANOTE ---
RE VANCO TROUGH SUBTHERAPUETIC. CHANGING DOSE TO 1GM Q8H. SUSPECTED AUC 539, TROUGH 15
--- NOTE | 2022-02-09 11:02 | P.PNIM_ITS ---
Subjective Subjective Date of Service: 02/09/22 Interval History: cc: right toe ulcer interval history:redness improved Cardiovascular Cardiovascular: Reports no additional cardiovascular complaints Respiratory Respiratory: Reports no additional respiratory complaints Physical Exam Vital Signs: Vital Signs: Last Vital Signs Temp 97.6 F 02/09/22 07:54 Pulse 95 02/09/22 07:54 Resp 16 02/09/22 02:55 BP 130/72 02/09/22 07:54 Pulse Ox 98 02/09/22 07:54 O2 Del Method 02/09/22 07:54 BMI result Body Mass Index 24.7 Const: General: cooperative and no acute distress Nutritional Appearance: well nourished Orientation/consciousness: patient oriented x3 Limitations: no limitations HEENT: Head: Yes normocephalic and Yes atraumatic Ears: hearing grossly normal bilaterally Resp: Effort & Inspection: normal respiratory effort, no audible wheezes, no cough and no respiratory distress Cardio: Jugular venous distension: no JVD GI: Inspection: Yes normal to inspection Skin: Other: Warm, dry, no rash Neuro: General: patient oriented x3 Extrem: Other: Right great toe with an area of callus/ulceration, dry involving the distal phalanx with erythema extending up the foot to involve the distal metatarsal region. General: Yes no clubbing, cyanosis or edema Objective Data Active Medications Acetaminophen (Acetaminophen 325 Mg Tablet) 650 mg PO Q6H PRN PRN Reason: Pain, Mild (Pain Scale 1-3) Last Admin: 02/09/22 05:01 Dose: 650 mg Documented By: SUNDEEP Hydromorphone HCl (Hydromorphone Hcl 0.5 Mg/0.5 Ml Syringe) 0.5 mg IVPUSH Q4H PRN; Protocol PRN Reason: Breakthrough Pain Last Admin: 02/09/22 07:43 Dose: 0.5 mg Documented By: RAYNE Doxycycline Hyclate 100 mg/ (Sodium Chloride) 250 mls @ 166.67 mls/hr IV Q12H [facility] Last Infusion: 02/09/22 05:05 Dose: 0 mls/hr Documented By: SUNDEEP Vancomycin HCl 1,000 mg/ (Sodium Chloride) 270 mls @ 270 mls/hr IV Q8H [facility] Last Infusion: 02/09/22 08:23 Dose: 0 mls/hr Documented By: RAYNE Methylprednisolone Sodium Succinate (Methylprednisolone Sod Succ 125 Mg/2 Ml Vial) 60 mg IVPUSH Q12H [facility] Last Admin: 02/09/22 03:14 Dose: 60 mg Documented By: SUNDEEP Ondansetron HCl (Ondansetron Hcl 4 Mg/2 Ml Vial) 4 mg IVPUSH Q8H PRN PRN Reason: Nausea and Vomiting Pharmacy Consult (Consult Rx Vancomycin Dosing) 1 each MISCELLANE DAILY PRN PRN Reason: Consult order Sodium Chloride (0.9 % Sodium Chloride Flush 3 Ml Syringe) 3 ml IVFLUSH QSHIFT [facility] Last Admin: 02/09/22 07:44 Dose: 3 ml Documented By: RAYNE Labs CBC & Chem 7: 02/07/22 13:54 02/09/22 04:47 Labs: Laboratory Results - last 24 hr 02/08/22 02/08/22 02/09/22 16:30 Unknown 04:47 Estim Creat Clear Calc 100.6 Estimated GFR > 60 Vancomycin Trough Urine Opiates Screen Not Detected Urine Fentanyl Screen Not Detected Ur Barbiturates Screen Not Detected Ur Phencyclidine Scrn Not Detected Ur Amphetamines Screen Not Detected U Benzodiazepines Scrn Not Detected Urine Cocaine Screen Not Detected U Marijuana (THC) Screen POSITIVE H Chlam trachomat DNA PCR NOT DETECTED N.gonorrhoeae DNA (PCR) NOT DETECTED 02/09/22 04:47 Estim Creat Clear Calc Estimated GFR Vancomycin Trough 7.7 L Urine Opiates Screen Urine Fentanyl Screen Ur Barbiturates Screen Ur Phencyclidine Scrn Ur Amphetamines Screen U Benzodiazepines Scrn Urine Cocaine Screen U Marijuana (THC) Screen Chlam trachomat DNA PCR N.gonorrhoeae DNA (PCR) Microbiology Microbiology Results: Microbiology 02/07/22 19:14 Blood Culture - Preliminary Blood - Venous No growth after 24 hours. 02/07/22 19:14 Blood Culture - Preliminary Blood - Venous No growth after 24 hours. 02/07/22 13:54 Blood Culture - Preliminary Blood - Venous No growth after 24 hours. 02/07/22 13:42 Blood Culture - Preliminary Blood - Venous No growth after 24 hours. Assessment and Plan (1) Foot lesion: Status: Acute Plan 26F presented with erythema surrounding non healing ulcer non healing ulcer with surrounding cellulitis vanc, doxy started steroids follow up cultures Id and surgery following reason for continued hospitalization:ongoing iv abx Quality Stroke Does the patient have a stroke diagnosis?: No VTE Prior VTE?: No VTE Risk Level:: Medical - low VTE Device Contraindication: N/A - Device Ordered VTE Drug Contraindication: Treatment Not Indicated
[2022-02-09 16:00] VITALS: BP 125/70; PULSE 98; RESP 17; TEMP 36.4; O2SAT 100
[2022-02-09 19:52] VITALS: BP 147/77; PULSE 106; RESP 17; TEMP 36.2; O2SAT 100
[2022-02-09 23:18] VITALS: BP 125/67; PULSE 87; RESP 18; TEMP 36.3; O2SAT 99
[2022-02-10] MEDS: HYDROmorphone HCl 0.5 MG/0.5 ML SYRINGE IVPUSH ×5 (00:23→18:49)
[2022-02-10] MEDS: Acetaminophen 325 MG TABLET 650 MG PO ×3 (00:34→15:33)
[2022-02-10] MEDS: 0.9 % Sodium Chloride Flush 3 ML SYRINGE IVFLUSH ×4 (00:55→21:31)
[2022-02-10] MEDS: methylPREDNISolone Sod Succ 125 MG/2 ML VIAL 60 MG IVPUSH ×2 (03:55→15:33)
[2022-02-10] MEDS: Doxycycline Hyclate 100 MG in 0.9 % Sodium Chloride 250 ML 166.67 MG IV ×2 (03:55→15:33)
[2022-02-10 04:32] VITALS: BP 129/72; PULSE 76; RESP 16
[2022-02-10 05:17] LABS: Creatinine Clr Calc Pharmacy 97.8; Estimated Glomerular Filt Rate > 60
--- NOTE | 2022-02-10 06:19 | HE.PHANOTE ---
RE VANCO TROUGH INCREASED TO 16. INSIGHT MODEL WANTS TO CONTINUE DOSE, BUT I AM WORRIED ABOUT >100% INCREASE FROM 7.7. WILL DECREASE BACK TO 1000MG Q12H, RANDOM TOMORROW 02/11@0500
[2022-02-10] MEDS: vancomycin HCL 1,000 MG in 0.9 % Sodium Chloride 250 ML 270 MG IV ×2 (07:28→21:30)
[2022-02-10] MEDS: ALPRAZolam 0.25 MG TABLET PO (07:58)
[2022-02-10 08:00] VITALS: BP 140/87; PULSE 94; RESP 18; TEMP 36.4; O2SAT 100
--- NOTE | 2022-02-10 09:03 | P.PNIM_ITS ---
Subjective Subjective Date of Service: 02/10/22 Interval History: cc: right toe ulcer interval history:redness improved, severe pain Cardiovascular Cardiovascular: Reports no additional cardiovascular complaints Respiratory Respiratory: Reports no additional respiratory complaints Physical Exam Vital Signs: Vital Signs: Last Vital Signs Temp 97.6 F 02/10/22 08:00 Pulse 94 02/10/22 08:00 Resp 18 02/10/22 08:00 BP 140/87 H 02/10/22 08:00 Pulse Ox 100 02/10/22 08:00 O2 Del Method 02/10/22 08:00 BMI result Body Mass Index 24.7 Const: General: cooperative and no acute distress Nutritional Appearance: well nourished Orientation/consciousness: patient oriented x3 Limitations: no limitations HEENT: Head: Yes normocephalic and Yes atraumatic Ears: hearing grossly normal bilaterally Resp: Effort & Inspection: normal respiratory effort, no audible wheezes, no cough and no respiratory distress Cardio: Jugular venous distension: no JVD GI: Inspection: Yes normal to inspection Skin: Other: Warm, dry, no rash Neuro: General: patient oriented x3 Extrem: Other: Right great toe with an area of callus/ulceration, dry involving the distal phalanx with erythema extending up the foot to involve the distal metatarsal region. General: Yes no clubbing, cyanosis or edema Objective Data Active Medications Acetaminophen (Acetaminophen 325 Mg Tablet) 650 mg PO Q6H PRN PRN Reason: Pain, Mild (Pain Scale 1-3) Last Admin: 02/10/22 07:29 Dose: 650 mg Documented By: BOBBY Hydromorphone HCl (Hydromorphone Hcl 0.5 Mg/0.5 Ml Syringe) 0.5 mg IVPUSH Q4H PRN; Protocol PRN Reason: Breakthrough Pain Last Admin: 02/10/22 04:27 Dose: 0.5 mg Documented By: ANNEMARIE Doxycycline Hyclate 100 mg/ (Sodium Chloride) 250 mls @ 166.67 mls/hr IV Q12H [facility] Last Infusion: 02/10/22 06:35 Dose: 0 mls/hr Documented By: ANNEMARIE Vancomycin HCl 1,000 mg/ (Sodium Chloride) 270 mls @ 270 mls/hr IV Q12H [facility] Last Admin: 02/10/22 07:28 Dose: 270 mls/hr Documented By: BOBBY Methylprednisolone Sodium Succinate (Methylprednisolone Sod Succ 125 Mg/2 Ml Vial) 60 mg IVPUSH Q12H [facility] Last Admin: 02/10/22 03:55 Dose: 60 mg Documented By: ANNEMARIE Ondansetron HCl (Ondansetron Hcl 4 Mg/2 Ml Vial) 4 mg IVPUSH Q8H PRN PRN Reason: Nausea and Vomiting Pharmacy Consult (Consult Rx Vancomycin Dosing) 1 each MISCELLANE DAILY PRN PRN Reason: Consult order Sodium Chloride (0.9 % Sodium Chloride Flush 3 Ml Syringe) 3 ml IVFLUSH QSHIFT [facility] Last Admin: 02/10/22 07:58 Dose: 3 ml Documented By: BOBBY Labs CBC & Chem 7: 02/07/22 13:54 02/10/22 04:56 Labs: Laboratory Results - last 24 hr 02/10/22 02/10/22 04:56 04:56 Estim Creat Clear Calc 97.8 Estimated GFR > 60 Vancomycin Trough 16.0 Microbiology Microbiology Results: Microbiology 02/07/22 19:14 Blood Culture - Preliminary Blood - Venous No growth after 48 hours. 02/07/22 19:14 Blood Culture - Preliminary Blood - Venous No growth after 48 hours. 02/07/22 13:54 Blood Culture - Preliminary Blood - Venous No growth after 48 hours. 02/07/22 13:42 Blood Culture - Preliminary Blood - Venous No growth after 48 hours. Assessment and Plan (1) Foot lesion: Status: Acute Plan 26F presented with erythema surrounding non healing ulcer non healing ulcer with surrounding cellulitis cellulitis significantly improved vanc, doxy etiology of ulcer under investigation, labs pending, plan for possible biopsy continue steroids Id and surgery following reason for continued hospitalization:ongoing iv abx, work up ongoing Quality Stroke Does the patient have a stroke diagnosis?: No VTE Prior VTE?: No VTE Risk Level:: Medical - low VTE Device Contraindication: N/A - Device Ordered VTE Drug Contraindication: Treatment Not Indicated
--- NOTE | 2022-02-10 12:48 | P.PNGS_ITS ---
Subjective Subjective Date of Service: 02/10/22 Interval history: Continues to complain of pain in the right great toe Physical Exam Vital Signs: Vital Signs: Last Vital Signs Temp 97.6 F 02/10/22 08:00 Pulse 94 02/10/22 08:00 Resp 18 02/10/22 08:00 BP 140/87 H 02/10/22 08:00 Pulse Ox 100 02/10/22 08:00 O2 Del Method 02/10/22 08:00 BMI result Body Mass Index 24.7 Const: General: cooperative and no acute distress Nutritional Appearance: well nourished Limitations: no limitations Resp: Effort & Inspection: normal respiratory effort, no audible wheezes, no cough and no respiratory distress Skin: Other: Warm, dry, no rash Extrem: Other: Right great toe with an area of callus/ulceration, dry involving the distal phalanx with erythema extending up the foot to involve the distal metatarsal region. General: Yes no clubbing, cyanosis or edema Objective Data Active Medications Acetaminophen (Acetaminophen 325 Mg Tablet) 650 mg PO Q6H PRN PRN Reason: Pain, Mild (Pain Scale 1-3) Last Admin: 02/10/22 07:29 Dose: 650 mg Documented By: BOBBY Hydromorphone HCl (Hydromorphone Hcl 0.5 Mg/0.5 Ml Syringe) 0.5 mg IVPUSH Q4H PRN; Protocol PRN Reason: Breakthrough Pain Last Admin: 02/10/22 09:09 Dose: 0.5 mg Documented By: BOBBY Doxycycline Hyclate 100 mg/ (Sodium Chloride) 250 mls @ 166.67 mls/hr IV Q12H [facility] Last Infusion: 02/10/22 06:35 Dose: 0 mls/hr Documented By: ANNEMARIE Vancomycin HCl 1,000 mg/ (Sodium Chloride) 270 mls @ 270 mls/hr IV Q12H [facility] Last Infusion: 02/10/22 09:09 Dose: 0 mls/hr Documented By: BOBBY Methylprednisolone Sodium Succinate (Methylprednisolone Sod Succ 125 Mg/2 Ml Vial) 60 mg IVPUSH Q12H [facility] Last Admin: 02/10/22 03:55 Dose: 60 mg Documented By: ANNEMARIE Ondansetron HCl (Ondansetron Hcl 4 Mg/2 Ml Vial) 4 mg IVPUSH Q8H PRN PRN Reason: Nausea and Vomiting Pharmacy Consult (Consult Rx Vancomycin Dosing) 1 each MISCELLANE DAILY PRN PRN Reason: Consult order Sodium Chloride (0.9 % Sodium Chloride Flush 3 Ml Syringe) 3 ml IVFLUSH QSHIFT [facility] Last Admin: 02/10/22 07:58 Dose: 3 ml Documented By: BOBBY Labs CBC & Chem 7: 02/07/22 13:54 02/10/22 04:56 Labs: Laboratory Results - last 24 hr 02/10/22 02/10/22 04:56 04:56 Estim Creat Clear Calc 97.8 Estimated GFR > 60 Vancomycin Trough 16.0 Microbiology Microbiology Results: Microbiology 02/07/22 19:14 Blood Culture - Preliminary Blood - Venous No growth after 48 hours. 02/07/22 19:14 Blood Culture - Preliminary Blood - Venous No growth after 48 hours. 02/07/22 13:54 Blood Culture - Preliminary Blood - Venous No growth after 48 hours. 02/07/22 13:42 Blood Culture - Preliminary Blood - Venous No growth after 48 hours. Procedures Date of Service Date of Service: 02/10/22 Progress Note: A&P Assessment and plan (1) Foot lesion: Status: Acute (2) Cellulitis: Status: Acute Plan Discussed the possible need for wound debridement and skin biopsy with the patient. She expressed understanding and agrees with this plan. She is requesting procedure be performed under anesthesia. After discussion of the procedure, risks, and alternatives, she consents to the surgery. Patient will be added on the schedule for Friday tentatively. Will request vascular surgery evaluation Dr. Germain for his assessment of this unusual foot wound. Time Spent With Patient Time: Total time spent is greater than 50% in coordination of care (as documented) at patient's floor/unit and/or counseling patient: Quality Stroke Does the patient have a stroke diagnosis?: No VTE Prior VTE?: No VTE Risk Level:: Medical - low VTE Device Contraindication: N/A - Device Ordered VTE Drug Contraindication: Treatment Not Indicated
[2022-02-10 15:54] VITALS: BP 134/89; PULSE 97; RESP 20; TEMP 36.4; O2SAT 100
[2022-02-10 23:23] VITALS: BP 129/74; PULSE 83; RESP 19; TEMP 36.3; O2SAT 100
[2022-02-11] MEDS: Melatonin 3 MG TABLET 6 MG PO ×2 (00:20→22:44)
[2022-02-11] MEDS: methylPREDNISolone Sod Succ 125 MG/2 ML VIAL 60 MG IVPUSH ×2 (04:12→14:26)
[2022-02-11] MEDS: Doxycycline Hyclate 100 MG in 0.9 % Sodium Chloride 250 ML 166.67 MG IV ×2 (04:12→15:40)
[2022-02-11] MEDS: HYDROmorphone HCl 0.5 MG/0.5 ML SYRINGE IVPUSH ×5 (04:13→22:44)
[2022-02-11 06:28] LABS: Vancomycin Random 10.3 mcg/mL (15-20)
[2022-02-11 06:31] LABS: Creatinine Clr Calc Pharmacy 100.6; Estimated Glomerular Filt Rate > 60
--- NOTE | 2022-02-11 06:46 | HE.PHANOTE ---
RE MARY CHANGED DOSE BACK TO VANCO 1000MG Q8H, NEXT TROUGH 02/12 @0500
[2022-02-11] MEDS: vancomycin HCL 1,000 MG in 0.9 % Sodium Chloride 250 ML 270 MG IV ×2 (07:28→14:26)
[2022-02-11] MEDS: 0.9 % Sodium Chloride Flush 3 ML SYRINGE IVFLUSH ×3 (07:28→22:56)
[2022-02-11] MEDS: Acetaminophen 325 MG TABLET 650 MG PO ×2 (07:34→15:46)
[2022-02-11 07:49] LABS: HBsAGNum1 0.48 S/CO (0.00-0.99); HIV AB/AG Nonreactive (Nonreactive); HIV Num 1 0.12 S/CO (0.00-0.99); Hepatitis B Surface Antigen Negative (Negative); ~HepC Num1 0.07 S/CO (0.00-0.79); ~Hepatitis C Antibody Nonreactive (Nonreactive)
[2022-02-11 07:52] VITALS: BP 142/76; PULSE 90; RESP 18; TEMP 36.3; O2SAT 100
--- NOTE | 2022-02-11 11:58 | HO.PM.IMPN ---
Subjective Subjective Date of Service: 02/11/22 Interval History: Seen and examined this morning Follow-up for foot wound Denies fever, chills, persistent foot pain Review of Systems Review of Systems: Yes all other systems are reviewed and are negative Constitutional Constitutional: Denies chills and Denies fever(s) Cardiovascular Cardiovascular: Denies chest pain and Denies dyspnea Respiratory Respiratory: Denies cough and Denies dyspnea Gastrointestinal Gastrointestinal: Denies nausea and Denies vomiting Physical Exam Vital Signs: Vital Signs: Last Vital Signs Temp 97.4 F 02/11/22 07:52 Pulse 90 02/11/22 07:52 Resp 18 02/11/22 07:52 BP 142/76 H 02/11/22 07:52 Pulse Ox 100 02/11/22 07:52 O2 Del Method 02/11/22 07:52 BMI result Body Mass Index 24.7 Const: General: cooperative, healthy appearing, comfortable and no acute distress Nutritional Appearance: average body habitus Orientation/consciousness: patient oriented x3 Resp: Effort & Inspection: normal respiratory effort and able to speak in complete sentences Cardio: Rate: regular rate Heart sounds: S1 normal heart sound present and S2 normal heart sound present GI: Palpation (GI): Soft to palpation and nontender Skin: Other: Right foot with erythema of great toe and tips of 2nd 3rd 4th toes, dry ulceration of great toe no significant swelling, no drainage Neuro: General: patient oriented x3 Objective Data Active Medications Acetaminophen (Acetaminophen 325 Mg Tablet) 650 mg PO Q6H PRN PRN Reason: Pain, Mild (Pain Scale 1-3) Last Admin: 02/11/22 07:34 Dose: 650 mg Documented By: LEROY Hydromorphone HCl (Hydromorphone Hcl 0.5 Mg/0.5 Ml Syringe) 0.5 mg IVPUSH Q4H PRN; Protocol PRN Reason: Breakthrough Pain Last Admin: 02/11/22 09:01 Dose: 0.5 mg Documented By: LEROY Doxycycline Hyclate 100 mg/ (Sodium Chloride) 250 mls @ 166.67 mls/hr IV Q12H [facility] Last Infusion: 02/11/22 06:11 Dose: 0 mls/hr Documented By: JOYCE Vancomycin HCl 1,000 mg/ (Sodium Chloride) 270 mls @ 270 mls/hr IV Q8H [facility] Last Infusion: 02/11/22 08:31 Dose: 0 mls/hr Documented By: LEROY Melatonin (Melatonin 3 Mg Tablet) 6 mg PO BEDTIME PRN PRN Reason: Insomnia Last Admin: 02/11/22 00:20 Dose: 6 mg Documented By: JOYCE Methylprednisolone Sodium Succinate (Methylprednisolone Sod Succ 125 Mg/2 Ml Vial) 60 mg IVPUSH Q12H [facility] Last Admin: 02/11/22 04:12 Dose: 60 mg Documented By: JOYCE Ondansetron HCl (Ondansetron Hcl 4 Mg/2 Ml Vial) 4 mg IVPUSH Q8H PRN PRN Reason: Nausea and Vomiting Pharmacy Consult (Consult Rx Vancomycin Dosing) 1 each MISCELLANE DAILY PRN PRN Reason: Consult order Sodium Chloride (0.9 % Sodium Chloride Flush 3 Ml Syringe) 3 ml IVFLUSH QSHIFT [facility] Last Admin: 02/11/22 07:28 Dose: 3 ml Documented By: LEROY Labs CBC & Chem 7: 02/07/22 13:54 02/11/22 05:13 Labs: Laboratory Results - last 24 hr 02/08/22 02/11/22 02/11/22 16:29 05:13 05:13 Estim Creat Clear Calc 100.6 Estimated GFR > 60 Random Vancomycin 10.3 L Hep Bs Antigen Negative Hepatitis C Ab (EIA) Nonreactive HIV 1&2 Ab/P24 Ag 4thGn Nonreactive Assessment and Plan (1) Foot lesion: Status: Acute (2) Cellulitis: Status: Acute Plan 26F presented with erythema surrounding non healing ulcer non healing ulcer with surrounding cellulitis CT shows no osseous abnormality or erosion afebrile cellulitis significantly improved continue vanc, doxy etiology of ulcer under investigation, labs pending, plan for possible biopsy continue steroids Id and surgery following Vascular surgery consultation pending DVT prophylaxis-ambulation Attending-Dr. Shoemaker reason for continued hospitalization:ongoing iv abx, work up ongoing Quality Stroke Does the patient have a stroke diagnosis?: No VTE Prior VTE?: No VTE Risk Level:: Medical - low VTE Device Contraindication: N/A - Device Ordered VTE Drug Contraindication: Treatment Not Indicated
--- NOTE | 2022-02-11 14:24 | P.CONGS_ITS ---
History of Present Illness Consult details Consult date: 02/11/22 Reason for consult: other (Nonhealing right foot ulcer) Narrative: Complex 26-year-old female was referred to me by General surgery. She has had this nonhealing right great toe ulcer. It has continued to progress over the last several months. [facility] bsequently sent in for admission. Of note she has a history significant of heart block since the age of 7. She originally had a single-chamber pacemaker placed at that age. She subsequently by the age of 11 ended up with a dual chamber pacemaker. She is currently on her 4th pacemaker appears to be doing relatively well with that. She now presents for vascular evaluation. Review of Systems Review of Systems: Yes all other systems are reviewed and are negative Constitutional: Constitutional: Reports no additional constitutional complaints ENT: Reports Normal hearing present Cardiovascular: Cardiovascular: Denies chest pain, Denies chest pain at rest, Denies chest pain with activity and Denies pedal edema Respiratory: Respiratory: Denies cough Gastrointestinal: Gastrointestinal: Denies abdominal pain Musculoskeletal: Musculoskeletal: Denies abnormal gait, Denies muscle cramps and Denies radiating pain into limb Integumentary/Breasts: Skin/Breast: Denies skin ulcer and Denies wounds Neurologic: Reports Normal hearing present and Denies abnormal gait Psychiatric: Psychiatric: Reports no additional psychiatric complaints PMFSH Past Medical History Medical History Complete heart block Foot lesion History of cardiac pacemaker Pacemaker Seasonal allergies Family History Family History Mother Prediabetes Family history: reviewed and not pertinent Social History Social History Household Members: Family Housing: Apartment Do you presently have visiting nurse or other home services: No Alcohol intake: current Alcohol intake frequency: holidays/special occasions only Alcohol type: wine Patient Tobacco Use Status: Never used Tobacco Use of substances other than those prescribed or required for medical reasons: Yes Substance Use Type: Marijuana Substance Use Frequency: Daily Currently Displaying Signs/Symptoms of Drug Intoxication Withdrawal: No Any prior treatment program specific to substance use: No Have you been hit, kicked, punched, or otherwise hurt by someone within the past year? If so, by whom?: No Is there a partner from a previous relationship who is making you feel unsafe now?: No Are you made to feel afraid or neglected: No Advance Directives: No Advance Directives Information Provided: No Do you have thoughts of harming others: None Do you have a plan to hurt others: No Plan Recently lost weight without trying: Yes How much weight loss: 14-23 pounds Eating poorly because of decreased appetite: Yes Nutrition screen score: 5 Patient : No : No Poor oral hygiene: No service: No Current occupational status: unemployed Meds Allergies Allergy/AdvReac Type Severity Reaction Status Date / Time No Known Allergies Allergy Verified 10/27/21 15:29 Active Medications: Current Medications Acetaminophen (Acetaminophen 325 Mg Tablet) 650 mg PO Q6H PRN PRN Reason: Pain, Mild (Pain Scale 1-3) Last Admin: 02/11/22 07:34 Dose: 650 mg Hydromorphone HCl (Hydromorphone Hcl 0.5 Mg/0.5 Ml Syringe) 0.5 mg IVPUSH Q4H PRN; Protocol PRN Reason: Breakthrough Pain Last Admin: 02/11/22 09:01 Dose: 0.5 mg Doxycycline Hyclate 100 mg/ (Sodium Chloride) 250 mls @ 166.67 mls/hr IV Q12H [facility] Last Infusion: 02/11/22 06:11 Dose: Infused Vancomycin HCl 1,000 mg/ (Sodium Chloride) 270 mls @ 270 mls/hr IV Q8H [facility] Last Infusion: 02/11/22 08:31 Dose: Infused Melatonin (Melatonin 3 Mg Tablet) 6 mg PO BEDTIME PRN PRN Reason: Insomnia Last Admin: 02/11/22 00:20 Dose: 6 mg Methylprednisolone Sodium Succinate (Methylprednisolone Sod Succ 125 Mg/2 Ml Vial) 60 mg IVPUSH Q12H [facility] Last Admin: 02/11/22 04:12 Dose: 60 mg Ondansetron HCl (Ondansetron Hcl 4 Mg/2 Ml Vial) 4 mg IVPUSH Q8H PRN PRN Reason: Nausea and Vomiting Pharmacy Consult (Consult Rx Vancomycin Dosing) 1 each MISCELLANE DAILY PRN PRN Reason: Consult order Sodium Chloride (0.9 % Sodium Chloride Flush 3 Ml Syringe) 3 ml IVFLUSH QSHIFT [facility] Last Admin: 02/11/22 07:28 Dose: 3 ml Home Medications Medication Instructions Recorded Confirmed Last Taken Type acetaminophen 325 mg tablet 650 mg PO Q6H PRN Pain 02/07/22 02/07/22 Unknown History aspirin 81 mg chewable tablet 81 mg PO DAILY PRN Pain 02/07/22 02/07/22 Unknown History cephalexin 500 mg capsule 1 cap PO QID 02/07/22 02/07/22 02/06/22 History Physical Exam Vital Signs: Vital Signs: Last Vital Signs Temp 97.4 F 02/11/22 07:52 Pulse 90 02/11/22 07:52 Resp 18 02/11/22 07:52 BP 142/76 H 02/11/22 07:52 Pulse Ox 100 02/11/22 07:52 O2 Del Method 02/11/22 07:52 BMI result Body Mass Index 24.7 Const: General: cooperative, healthy appearing and comfortable Orientation/consciousness: oriented to person, oriented to place and oriented to time HEENT: Head: Yes normal to inspection Neck: Neck: Yes normal visual inspection Carotids: no bruits Chest: Chest palpation & inspection: normal inspection of the chest Resp: Effort & Inspection: normal respiratory effort and able to speak in complete sentences Auscultation: clear to auscultation bilaterally, no crackles, no rales, no rhonchi and no wheezes Cardio: Rate: regular rate Rhythm: regular rhythm Heart sounds: S1 normal heart sound present and S2 normal heart sound present Bruits: no carotid bruits Peripheral pulses: dorsalis pedis present (Right side DP signal where the left side was a palpable DP) GI: Inspection: Yes normal to inspection Skin: Wounds: wounds noted (Right great toe dry ulcer) Hair: normal Neuro: General: oriented to person, oriented to place and oriented to time Cranial nerves: Yes CN's II-XII intact bilaterally and Yes Normal hearing present Cognition (Neuro): normal cognition Motor exam (neuro): 5/5 motor strength present throughout Extrem: Other: venous exam: No significant superficial varicosities or spider telangiecta katy, minimal edema General: No clubbing, No cyanosis and No edema Psych: Appearance: grossly normal Mental Status: mental status grossly normal Speech and movement: Normal speech and movement present Results Labs Result diagrams: 02/07/22 13:54 02/11/22 05:13 Labs: Abnormal lab results 02/11/22 Range/Units 05:13 Random Vancomycin 10.3 L (15-20) mcg/mL BMP 02/11/22 05:13 Creatinine 0.73 All other labs normal. Assessment and Plan (1) PAD (peripheral artery disease): Status: Acute Plan Unclear etiology of nonhealing right lower extremity ulcer. It is quite unusual that such a young girl at the age of 26 has peripheral vascular disease. My fear is that this may be a thromboembolic event that dates back nearly a year where she initially complained of these issues. This may be due to her complete heart block and an embolic event. I have taken the liberty of ordering noninvasive arterial testing. I will follow-up with that. Pending results will have further recommendations. Thank you for allowing us to assist in her care. If there are any questions or concerns please do not hesitate to contact us. Procedures Date of Service Date of Service: 02/11/22
--- NOTE | 2022-02-11 14:28 | MHC.CLN ---
NUTRITION PATIENT REPORTS SOME WEIGHT LOSS IN THE PAST FEW MONTHS DUE TO DEPRESSION. CURRENT APPETITE IMPROVING. NO ADDITIONAL NUTRITION INTERVENTIONS AT THIS TIME.
[2022-02-11 14:32] LABS: Immunoglobulin A 411 mg/dL (47-310)
--- NOTE | 2022-02-11 14:36 | PM.IDPN ---
Subjective Subjective Date of Service: 02/11/22 Critical Care Time (minutes): 15 Comment: she reports area about same Objective Data Labs CBC & Chem 7: 02/07/22 13:54 02/11/22 05:13 Labs: Laboratory Results - last 24 hr 02/08/22 02/08/22 02/11/22 16:29 16:29 05:13 Creatinine 0.73 Estim Creat Clear Calc 100.6 Estimated GFR > 60 Random Vancomycin IgA 411 H Hep Bs Antigen Negative Hepatitis C Ab (EIA) Nonreactive HIV 1&2 Ab/P24 Ag 4thGn Nonreactive 02/11/22 05:13 Creatinine Estim Creat Clear Calc Estimated GFR Random Vancomycin 10.3 L IgA Hep Bs Antigen Hepatitis C Ab (EIA) HIV 1&2 Ab/P24 Ag 4thGn Microbiology Microbiology Results: Microbiology 02/07/22 19:14 Blood - Venous Blood Culture - Preliminary No growth after 48 hours. 02/07/22 19:14 Blood - Venous Blood Culture - Preliminary No growth after 48 hours. 02/07/22 13:54 Blood - Venous Blood Culture - Preliminary No growth after 48 hours. 02/07/22 13:42 Blood - Venous Blood Culture - Preliminary No growth after 48 hours. Physical Exam Vital Signs: Vital Signs: Last Vital Signs Temp 97.4 F 02/11/22 07:52 Pulse 90 02/11/22 07:52 Resp 18 02/11/22 07:52 BP 142/76 H 02/11/22 07:52 Pulse Ox 100 02/11/22 07:52 O2 Del Method 02/11/22 07:52 BMI result Body Mass Index 24.7 Const: General: cooperative HEENT: Head: Yes normal to inspection Mouth: Normal oral and palatal mucosa present Resp: Effort & Inspection: normal respiratory effort Cardio: Rate: regular rate Rhythm: regular rhythm GI: Palpation (GI): Soft to palpation and nontender Skin: General skin exam: no rashes or lesions noted Assessment and Plan Assessment and plan (1) Cellulitis: Problem details: so far all testing for infections negative Dr Germain is seeing patient now,evaluate possible embolic events to foot Status: Acute Assessment and Plan: Would continue Doxycycline alone No bacteremia so will stop Vancomycin Stop steroids also by po taper Time Spent With Patient Time: Total time spent is greater than 50% in coordination of care (as documented) at patient's floor/unit and/or counseling patient:
[2022-02-11 15:31] VITALS: BP 119/67; PULSE 97; RESP 16; TEMP 36.7; O2SAT 99
[2022-02-11 21:42] LABS: Myeloperoxidase Antibody <1.0 AI; Proteinase 3 PR3 Antibodies <1.0 AI
[2022-02-11 23:28] VITALS: BP 148/91; PULSE 91; RESP 16; TEMP 36.5; O2SAT 100
[2022-02-12] MEDS: Acetaminophen 325 MG TABLET 650 MG PO ×3 (01:10→21:06)
[2022-02-12] MEDS: diphenhydrAMINE HCL 25 MG TABLET PO (02:20)
[2022-02-12] MEDS: methylPREDNISolone Sod Succ 125 MG/2 ML VIAL 60 MG IVPUSH ×2 (02:21→15:18)
[2022-02-12] MEDS: Doxycycline Hyclate 100 MG in 0.9 % Sodium Chloride 250 ML 166.67 MG IV ×2 (02:21→15:52)
[2022-02-12] MEDS: HYDROmorphone HCl 0.5 MG/0.5 ML SYRINGE IVPUSH ×5 (06:19→23:27)
[2022-02-12 07:06] LABS: Hematocrit 41.5 % (37.0-47.0); Hemoglobin 13.5 g/dl (12.0-16.0); Mean Corpuscular HGB Conc 32.5 g/dl (31.0-35.0); Mean Corpuscular Hemoglobin 31.1 pg (27.0-33.0); Mean Corpuscular Volume 95.6 fL (80.0-98.0); Mean Platelet Volume 9.3 fL (9.4-12.3); Platelet Count 535 X10*3/uL (160-400); Red Blood Count 4.34 X10*6/uL (4.20-5.50); Red Cell Distribution Width 13.6 % (11.0-16.0); White Blood Count 25.3 X10*3/uL (4.8-10.8)
--- NOTE | 2022-02-12 07:11 | MHC.CM.PN ---
PER MD ROUNDS ON 02/11/22, PT NOT YET MEDICALLY CLEARED. PER ID, SHE WILL CONTINUE IV ABX. DC PLAN REMAINS HOME WITH [facility] FAMILY TO TRANSPORT
[2022-02-12 07:19] LABS: Creatinine Clr Calc Pharmacy 101.9; Estimated Glomerular Filt Rate > 60
[2022-02-12 07:20] LABS: Anion Gap 13 (12-20); Blood Urea Nitrogen 10 mg/dL (9-16); Calcium 9.9 mg/dL (8.4-10.2); Carbon Dioxide 26 mmol/L (22-29); Chloride 104 mmol/L (96-108); Creatinine Clr Calc Pharmacy 100.6; Estimated Glomerular Filt Rate > 60; Glucose Random 108 mg/dL (60-115); Potassium 4.5 mmol/L (3.3-5.1); Sodium 138 mmol/L (135-145)
[2022-02-12 07:35] LABS: Vancomycin Trough 5.3 mcg/mL (10.0-20.0)
[2022-02-12 07:46] VITALS: BP 119/61; PULSE 75; RESP 16; TEMP 36.2; O2SAT 98
[2022-02-12] MEDS: 0.9 % Sodium Chloride Flush 3 ML SYRINGE IVFLUSH ×2 (10:16→22:28)
--- NOTE | 2022-02-12 12:15 | P.PNIM_ITS ---
Subjective Subjective Date of Service: 02/12/22 Interval History: the patient was seen and evaluated this morning Laying in bed, feels comfortable Complaining mainly of pain in her foot No reported other overnight events. Systemic review: No fever, chills or weakness No chest pain, palpitation No shortness of breath or coughing No abdominal pain, nausea or vomiting No urinary symptoms Right big toe wound, associated right toes discoloration Physical Exam Vital Signs: Vital Signs: Last Vital Signs Temp 97.2 F 02/12/22 07:46 Pulse 75 02/12/22 07:46 Resp 16 02/12/22 07:46 BP 119/61 02/12/22 07:46 Pulse Ox 98 02/12/22 07:46 O2 Del Method 02/12/22 07:46 BMI result Body Mass Index 24.7 Const: Other: Constitutional : Alert, oriented, not in distress Neck : Normal inspection, Supple Cardiovascular : RRR, no JVP, no lower extremity edema Respiratory : fair bilateral air entry, no crackles, wheezes or rhonchi Gastrointestinal: soft, lax, Normal bowel sounds, Non tender Skin : Warm, Dry, Right foot with erythema of great toe and tips of 2nd 3rd 4th toes, dry ulceration of great toe no significant swelling, no drainage Neurological : Alert & oriented x3, No focal deficit Objective Data Active Medications Acetaminophen (Acetaminophen 325 Mg Tablet) 650 mg PO Q6H PRN PRN Reason: Pain, Mild (Pain Scale 1-3) Last Admin: 02/12/22 01:10 Dose: 650 mg Documented By: JOYCE Hydromorphone HCl (Hydromorphone Hcl 0.5 Mg/0.5 Ml Syringe) 0.5 mg IVPUSH Q4H PRN; Protocol PRN Reason: Breakthrough Pain Last Admin: 02/12/22 10:16 Dose: 0.5 mg Documented By: YURIY Doxycycline Hyclate 100 mg/ (Sodium Chloride) 250 mls @ 166.67 mls/hr IV Q12H [facility] Last Infusion: 02/12/22 04:10 Dose: 0 mls/hr Documented By: JOYCE Melatonin (Melatonin 3 Mg Tablet) 6 mg PO BEDTIME PRN PRN Reason: Insomnia Last Admin: 02/11/22 22:44 Dose: 6 mg Documented By: JOYCE Methylprednisolone Sodium Succinate (Methylprednisolone Sod Succ 125 Mg/2 Ml Vial) 60 mg IVPUSH Q12H [facility] Last Admin: 02/12/22 02:21 Dose: 60 mg Documented By: JOYCE Ondansetron HCl (Ondansetron Hcl 4 Mg/2 Ml Vial) 4 mg IVPUSH Q8H PRN PRN Reason: Nausea and Vomiting Pharmacy Consult (Consult Rx Vancomycin Dosing) 1 each MISCELLANE DAILY PRN PRN Reason: Consult order Sodium Chloride (0.9 % Sodium Chloride Flush 3 Ml Syringe) 3 ml IVFLUSH QSHIFT [facility] Last Admin: 02/12/22 10:16 Dose: 3 ml Documented By: YURIY Labs CBC & Chem 7: 02/12/22 05:53 02/12/22 05:53 Labs: Laboratory Results - last 24 hr 02/08/22 02/12/22 02/12/22 16:29 05:53 05:53 MCV 95.6 MCH 31.1 MCHC 32.5 RDW 13.6 Plt Count 535 H MPV 9.3 L Absolute Nucleated RBC 0.000 Nucleated RBC % (auto) 0.0 Anion Gap 13 Estim Creat Clear Calc 100.6 Estimated GFR > 60 Random Glucose 108 Calcium 9.9 Vancomycin Trough IgA 411 H Proteinase 3 (PR3) Ab <1.0 Myeloperoxidase Ab <1.0 02/12/22 02/12/22 05:53 05:53 MCV MCH MCHC RDW Plt Count MPV Absolute Nucleated RBC Nucleated RBC % (auto) Anion Gap Estim Creat Clear Calc 101.9 Estimated GFR > 60 Random Glucose Calcium Vancomycin Trough 5.3 L IgA Proteinase 3 (PR3) Ab Myeloperoxidase Ab Assessment and Plan (1) Cellulitis: Status: Acute (2) Foot lesion: Status: Acute Plan 26F presented with erythema surrounding non healing ulcer non healing ulcer with surrounding cellulitis CT shows no osseous abnormality or erosion afebrile cellulitis significantly improved Discontinue vanc, continue doxy etiology of ulcer under investigation, labs pending, plan for possible biopsy continue steroids Id and surgery input appreciated, hold on biopsy until vascular workup is finished Vascular surgery recommended duplex ultrasound, readings still pending DVT prophylaxis-ambulation reason for continued hospitalization:ongoing iv abx, work up ongoing for nonhealing ulcer to avoid possible decompensation in to sepsis and osteomyelitis. Quality Stroke Does the patient have a stroke diagnosis?: No VTE Prior VTE?: No VTE Risk Level:: Medical - low VTE Device Contraindication: N/A - Device Ordered VTE Drug Contraindication: Treatment Not Indicated
--- NOTE | 2022-02-12 15:10 | HO.VASCPN ---
Subjective Subjective Date of Service: 02/12/22 Patient reports: no new complaints Interval history: Very pleasant 26-year-old female presents for follow-up regarding nonhealing right great toe ulcer. Continues to be a source of pain and discomfort for her. She now presents for follow-up. Physical Exam Vital Signs: Vital Signs: Last Vital Signs Temp 97.2 F 02/12/22 07:46 Pulse 75 02/12/22 07:46 Resp 16 02/12/22 07:46 BP 119/61 02/12/22 07:46 Pulse Ox 98 02/12/22 07:46 O2 Del Method 02/12/22 07:46 BMI result Body Mass Index 24.7 Const: General: cooperative, healthy appearing and comfortable Orientation/consciousness: oriented to person, oriented to place and oriented to time HEENT: Head: Yes normal to inspection Neck: Neck: Yes normal visual inspection Carotids: no bruits Chest: Chest palpation & inspection: normal inspection of the chest Resp: Effort & Inspection: normal respiratory effort and able to speak in complete sentences Auscultation: clear to auscultation bilaterally, no crackles, no rales, no rhonchi and no wheezes Cardio: Rate: regular rate Rhythm: regular rhythm Heart sounds: S1 normal heart sound present and S2 normal heart sound present Bruits: no carotid bruits Peripheral pulses: Peripheral pulses 2+ throughout GI: Inspection: Yes normal to inspection Skin: Other: Right great toe gangrene Wounds: wounds noted Hair: normal Neuro: General: oriented to person, oriented to place and oriented to time Cranial nerves: Yes CN's II-XII intact bilaterally and Yes Normal hearing present Cognition (Neuro): normal cognition Motor exam (neuro): 5/5 motor strength present throughout Extrem: Other: venous exam: No significant superficial varicosities or spider telangiectasias, minimal edema General: No clubbing, No cyanosis and No edema Psych: Appearance: grossly normal Mental Status: mental status grossly normal Speech and movement: Normal speech and movement present Progress Note: A&P Assessment and plan (1) PAD (peripheral artery disease): Status: Acute Plan In short patient has a nonhealing right great toe ulcer. Noninvasive testing was reviewed. Although the TRU is 0.92 there is concern that the posterior tibial is occluded. I have taken the liberty of ordering CT angiogram with runoff. Once that is complete we can better assess this. Concern is the increase in white count although this may be steroid induced. Should this prove to be negative it may be worthwhile for biopsy. She may require rheumatologic evaluation as an outpatient. We will continue to follow with you. Thank you for allowing us to participate in her care. If there are any questions or concerns please do not hesitate to contact us. Time Spent With Patient Time: Total time spent is greater than 50% in coordination of care (as documented) at patient's floor/unit and/or counseling patient: Procedures Date of Service Date of Service: 02/12/22 Quality Stroke Does the patient have a stroke diagnosis?: No VTE Prior VTE?: No VTE Risk Level:: Medical - low VTE Device Contraindication: N/A - Device Ordered VTE Drug Contraindication: Treatment Not Indicated
--- NOTE | 2022-02-12 15:17 | MHC.CM.PN ---
POSSIBLE DC HOME FRIDAY - SELF CARE.
[2022-02-12 15:37] VITALS: BP 112/78; PULSE 111; RESP 18; TEMP 36.4; O2SAT 99
[2022-02-12] MEDS: iohexoL 350 MG/ML 100 ML INFUS..BTL IV (17:42)
[2022-02-12 19:05] VITALS: BP 135/84; PULSE 106; RESP 18; TEMP 36.5; O2SAT 100
[2022-02-12] MEDS: oxyCODONE HCl Immed Release 5 MG TABLET PO (21:35)
[2022-02-13] VITALS: BP 134/84; PULSE 90; RESP 18; TEMP 36.3; O2SAT 100
[2022-02-13] MEDS: Melatonin 3 MG TABLET 6 MG PO (00:12)
[2022-02-13] MEDS: methylPREDNISolone Sod Succ 125 MG/2 ML VIAL 60 MG IVPUSH (03:50)
[2022-02-13] MEDS: oxyCODONE HCl Immed Release 5 MG TABLET PO ×2 (03:58→10:39)
[2022-02-13] MEDS: Doxycycline Hyclate 100 MG in 0.9 % Sodium Chloride 250 ML 166.67 MG IV (03:59)
[2022-02-13 04:05] VITALS: BP 119/79; PULSE 83; RESP 16; TEMP 36; O2SAT 99
[2022-02-13] MEDS: HYDROmorphone HCl 0.5 MG/0.5 ML SYRINGE IVPUSH ×2 (05:38→09:51)
[2022-02-13 07:20] VITALS: BP 131/64; PULSE 90; RESP 14; TEMP 36.2; O2SAT 91
[2022-02-13] MEDS: 0.9 % Sodium Chloride Flush 3 ML SYRINGE IVFLUSH (07:49)
[2022-02-13] MEDS: Acetaminophen 325 MG TABLET 650 MG PO (10:40)
--- NOTE | 2022-02-13 10:56 | P.PNVS_ITS ---
Subjective Subjective Date of Service: 02/13/22 Patient reports: no new complaints and still having pain Interval history: Very pleasant 26-year-old female presents for follow-up regarding nonhealing right great toe ulcer. She had undergone noninvasive testing and subsequent CT angiogram. She has had no interval changes. She continues to have right foot pain. She now presents for follow-up. Physical Exam Vital Signs: Vital Signs: Last Vital Signs Temp 97.1 F 02/13/22 07:20 Pulse 90 02/13/22 07:20 Resp 14 02/13/22 07:20 BP 131/64 02/13/22 07:20 Pulse Ox 91 L 02/13/22 07:20 O2 Del Method 02/13/22 07:20 BMI result Body Mass Index 24.7 Const: General: cooperative, healthy appearing and comfortable Orientation/consciousness: oriented to person, oriented to place and oriented to time HEENT: Head: Yes normal to inspection Neck: Neck: Yes normal visual inspection Carotids: no bruits Chest: Chest palpation & inspection: normal inspection of the chest Resp: Effort & Inspection: normal respiratory effort and able to speak in co mplete sentences Auscultation: clear to auscultation bilaterally, no crackles, no rales, no rhonchi and no wheezes Cardio: Rate: regular rate Rhythm: regular rhythm Heart sounds: S1 normal heart sound present and S2 normal heart sound present Bruits: no carotid bruits Peripheral pulses: dorsalis pedis present (Right side DP signal left side palpable DP) GI: Inspection: Yes normal to inspection Skin: Wounds: no wounds Hair: normal Neuro: General: oriented to person, oriented to place and oriented to time Cranial nerves: Yes CN's II-XII intact bilaterally and Yes Normal hearing present Cognition (Neuro): normal cognition Motor exam (neuro): 5/5 motor strength present throughout Extrem: Other: venous exam: No significant superficial varicosities or spider telangiectasias, minimal edema General: No clubbing, No cyanosis and No edema Psych: Appearance: grossly normal Mental Status: mental status grossly normal Speech and movement: Normal speech and movement present Progress Note: A&P Assessment and plan (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 This may be a little more chronic in nature. She will need care at a tertiary care institution due to her young age in significant comorbidities at such a young age. I will try to coordinate with a tertiary care institution as an outpatient. She will require formal anticoagulation with a DOAC, antibiotics as needed for the wound and pain control. We will try to assist in coordination referral. Thank you for allowing us to assist in her care. If there are any questions or concerns please do not hesitate to contact us. Time Spent With Patient Time: Total time spent is greater than 50% in coordination of care (as documented) at patient's floor/unit and/or counseling patient: Procedures Date of Service Date of Service: 02/13/22 Quality Stroke Does the patient have a stroke diagnosis?: No VTE Prior VTE?: No VTE Risk Level:: Medical - low VTE Device Contraindication: N/A - Device Ordered VTE Drug Contraindication: Treatment Not Indicated
--- NOTE | 2022-02-13 11:31 | P.DS_ITS ---
DS: Providers Provider Date of Service: 02/13/22 Date of admission: 02/07/22 18:06 Primary care physician: Elmira Recio MD Consults: 02/07/22 18:08 Consult to General Surgery [place]ine [place] [facility] [place] Reason for consultation: nonhealing wound/cellulitis of R foot Consult to Infectious Diseases Routine Consulting Provider: Daily Long Reason for consultation: nonhealing wound/cellulitis of R foot 02/10/22 13:02 Consult to Vascular Surgery Routine Consulting Provider: Guerrero Germain Reason for consultation: Right foot nonhealing wound, nondiabetic DS: Diagnosis Discharge Diagnosis (1) Embolic disease of toe: Status: Acute (2) PAD (peripheral artery disease): Status: Acute (3) Foot lesion: Status: Acute (4) Cellulitis: Status: Acute DS: Summary Hospital Course Hospital Course: Admission note HPI 26yo F with history of heart block s/p PPM at age of 7yo [place] [facility] [place] [facility] [facility] due to concern of R foot infection requiring IV antibiotics.? This all started 7 months ago with a laceration to the medial R 1st toe that she was advised to close with Super Glue.? Since then, she developed wound there that drains clear yellow liquid and now is covered with dry eschar.? She has taken 3 courses of oral antibiotics for infection of the area, most recently cephalexin. ? Over the last 3 weeks, she has had worsening redness of the R 1st toe that has spread to her forefoot as well as to her 2nd through 5th toes.? Her other foot and hands are completely normal.? Denies DM2, neuropathy, or IDU.? No fever, chills, nausea, or vomiting.? In the ED, a plain film showed no evidence of osteomyelitis.? Blood cultures were drawn and she was given IV vancomycin and piperacillin-tazobactam.? WBC was elevated at 13.0 but she was not sepitc. Hospital course The patient was admitted for evaluation of nonhealing ulcers with surrounding cellulitis in her right lower extremity. Images did not show any bone involvement at time of presentation. Cellulitis was treated with IV antibiotics with good response as well as steroid IV as no clear source of the wound was identified at that time. Evaluated by vascular surgeon who did the Doppler ultrasound and CTA order with runoff showing evidence of bilateral lower ext remities diminished arterial small vessels as described in CTA study. Recommendations to continue her oral antibiotic of doxycycline per ID recommendations at time of discharge. To start full-dose Eliquis for evidence of clots in the lower extremities arterial vessels per vascular surgery. To follow-up with [facility] vascular surgery as she will need further workup and possible invasive procedures to correct the underlying peripheral artery disease. Dr. Germain will continue to follow with her as he is arranging with vascular surgery office over there. Continue doxycycline for 1 more week Continue Eliquis 10 mg twice daily for the next 7 days then start 5 mg twice daily Oxycodone as needed for pain, use Tylenol around the clock 3-4 times daily To follow-up with vascular surgery Dr. Germain as outpatient To be referred to outpatient vascular surgery at [facility] for further evaluation and treatment. Time Spent with Patient Time attestation: Total time spent providing and/or coordinating discharge services: Discharge coordination time: Greater than 30 minutes Quality: Safe Use of Opioids Does Pt have an Active Cancer Diagnosis on the Problem List?: No Quality: Stroke Does the patient have a stroke diagnosis?: No Physical Exam Vital Signs: Vital Signs: Last Vital Signs Temp 97.1 F 02/13/22 07:20 Pulse 90 02/13/22 07:20 Resp 14 02/13/22 07:20 BP 131/64 02/13/22 07:20 Pulse Ox 91 L 02/13/22 07:20 O2 Del Method 02/13/22 07:20 BMI result Body Mass Index 24.7 Const: Other: Constitutional : Alert, oriented, not in distress Neck : Normal inspection, Supple Cardiovascular : RRR, no JVP, no lower extremity edema Respiratory : fair bilateral air entry, no crackles, wheezes or rhonchi Gastrointestinal: soft, lax, Normal bowel sounds, Non tender Skin : Warm, Dry, Right foot with erythema of great toe and tips toes, dry ulceration of great toe no significant swelling, no drainage Neurological : Alert & oriented x3, No focal deficit DS: Data Imaging CTA Aorta w runoff : Radiologist's impression: ITS Impressions Foot X-Ray 02/07/22 14:08 IMPRESSION: Soft tissue swelling without evidence of osteomyelitis Foot CT 02/07/22 19:49 IMPRESSION: Mild soft tissue swelling of the first digit. No associated osseous abnormality. No osseous erosion. No fracture. Abd US [id number] 02/11/22 19:47 IMPRESSION: No convincing evidence of hemodynamically significant peripheral arterial disease. The TRU on the right is 0.92 which is borderline. The TRU on the left is 1.19. There are hyperemic multiphasic waveforms bilaterally which can be seen in small vessel vascular bed dilation (such as cellulitis). Duplex Scan Lower Extremity Artery 02/11/22 19:47 IMPRESSION: No convincing evidence of hemodynamically significant peripheral arterial disease. The TRU on the right is 0.92 which is borderline. The TRU on the left is 1.19. There are hyperemic multiphasic waveforms bilaterally which can be seen in small vessel vascular bed dilation (such as cellulitis). Aorta w/Runoff CTA 02/12/22 17:48 IMPRESSION: 1. 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 There is occlusion of the right anterior tibial, posterior tibial and peroneal arteries. There is occlusion of the left anterior tibial and peroneal arteries with patent flow in the left posterior tibial artery 2. No significant atherosclerotic plaque is seen throughout the remaining arterial vessels. The aorta, bilateral iliac, femoral and popliteal arteries are widely patent without stenosis or vessel irregularity Discharge Plan Discharge Patient Disposition: Home, Self-Care Discharge Diagnosis: Clots in lower extremity Cellulitis Foot wound Referrals: Elmira Recio MD [Primary Care Provider] - 1 Week Discharge Medications: New oxycodone 5 mg Tablet 5 mg PO Q4H PRN (Reason: Pain, Severe (Pain Scale 7-10)) Qty: 30 0RF Rx Instructions: Partial Fill upon patient request. Eliquis 5 mg Tablet 10 mg PO BID Qty: 26 0RF doxycycline monohydrate 100 mg capsule 100 mg PO BID Qty: 14 0RF Eliquis 5 mg tablet 5 mg PO BID Qty: 60 1RF Rx Instructions: to start on 02/20/22 Continued acetaminophen 325 mg Tablet 650 mg PO Q6H PRN (Reason: Pain) Discontinued cephalexin 500 mg capsule 1 cap PO QID Rx Instructions: FINISH 02/07/22 aspirin 81 mg Tablet,Chewable 81 mg PO DAILY PRN (Reason: Pain) Discharge Orders: Discharge Order (Routine); Ordered 02/13/22 Ordered By: Karina Marcos Diet: Advance to usual diet Activity on Discharge: As tolerated Stand Alone Forms: Patient Portal Discharge page Care Plan Goals: Read below Health Concerns: Read below Plan of Treatment: Read below Assessment: You were admitted to the hospital for evaluation of right lower extremity wound and pain. Seen by vascular surgery team who did images including ultrasound and CT scan that showed an evidence of small-vessel conclusions in your right lower extremity. Images also confirmed conclusion in some of your left lower extremity arteries. Cellulitis was treated with antibiotics with good response as you were evaluated by infectious disease specialist. Continue doxycycline for 1 more week Continue Eliquis 10 mg twice daily for the next 7 days then start 5 mg twice daily Oxycodone as needed for pain, use Tylenol around the clock 3-4 times daily To follow-up with vascular surgery Dr. Germain as outpatient To be referred to outpatient vascular surgery at [facility] [place] [place] for further evaluation and treatment. Discharge Date/Time: 02/13/22 13:33
[2022-02-13] MEDS: Apixaban 5 MG TABLET 10 MG PO (12:12)
== END 2022-02-13 13:33 | disposition home or self-care (01) | DRG 197 ==
LOC: HO.ED 13:22 → HO.EDOVER 18:50 → HO.S3 02-08 11:23
PROVIDERS: Internal Medicine; Physician Assistant; Physician Assistant Medical; Admitting Provider Family Medicine; Emergency Provider Emergency Medicine; PCP Internal Medicine; Visit Provider Student in an Organized Health Care Education/Training Program
DX: I74.3 Embolism and thrombosis of arteries of the lower extremities (principal); I44.2 Atrioventricular block, complete; I96 Gangrene, not elsewhere classified; L97.519 Non-pressure chronic ulcer of other part of right foot with unspecified severity; L03.031 Cellulitis of right toe; Z20.822 Contact with and (suspected) exposure to COVID-19; Z95.0 Presence of cardiac pacemaker; Z56.0 Unemployment, unspecified
CPT/HCPCS: 36415; 73620; 73701; 75635; 80048; 80053; 80202; 80307; 82565; 82784; 83036; 83605; 85025; 85027; 85652; 86021; 86140; 86803; 87040; 87340; 87389; 87491; 87591; 87635; 93923; 93925; 96365; 96367; 99285; J1170; J2543; J2930; J3370; Q0163; Q9967

== ENCOUNTER 2022-02-19 11:16 | Emergency (ER) | payer MEDICAID, SELFPAY ==
--- NOTE | 2022-02-19 | ECG_ITS ---
Test Reason : chest pain Blood Pressure : / mmHG Vent. Rate : 120 BPM Atrial Rate : 120 BPM P-R Int : 148 ms QRS Dur : 128 ms QT Int : 318 ms P-R-T Axes : 050 099 -06 degrees QTc Int : 449 ms Atrial-sensed ventricular-paced rhythm Biventricular pacemaker detected Abnormal ECG When compared with ECG of 02-JUN-2011 10:47, No significant changes seen Referred By: Generic ED Physician Electronically Signed By:Vini Rangel
--- NOTE | ~2022-02-19 | XR_ITS ---
EXAMINATION: XR CHEST CLINICAL INFORMATION: Chest pain with shortness of breath COMPARISON: None TECHNIQUE: 2 views of the chest were obtained. FINDINGS: There is no evidence of acute parenchymal disease, pneumothorax, or pleural effusion. Heart normal size. No evidence of pulmonary edema. Pacemaker in place. XR/XR chest 2V IMPRESSION: No acute disease.
--- NOTE | ~2022-02-19 | CT_ITS ---
EXAMINATION: CT ANGIOGRAM OF THE CHEST WITH AND WITHOUT CONTRAST (CT PULMONARY ANGIOGRAM FOR PE) CLINICAL INFORMATION: Reason for Exam CP, SOB, DVT COMPARISON: None TECHNIQUE: Prior to contrast administration, noncontrast localization images were obtained. Subsequently, multidetector volumetric imaging was performed from the thoracic inlet to below the diaphragms following the administration of 65 mL Omnipaque 350 intravenous contrast. No contrast reaction reported Sagittal, coronal, and MIP oblique sagittal reformatted images were obtained on the CT workstation, uploaded to PACS, and reviewed. This CT examination was performed using dose optimization techniques as appropriate, variously including the following: *Automated exposure control *Adjustment of mA and/or kV according to patient size (this includes techniques or standardized protocols for targeted exams where dose is matched to indication/reason for exam; i.e. extremities or head) *Use of iterative reconstruction technique Total exam dose-length product 254 mGy-cm FINDINGS: QUALITY OF STUDY/CONTRAST BOLUS: Satisfactory. PULMONARY ARTERIES: No central or segmental pulmonary emboli appreciated. THORACIC AORTA: No aneurysm or dissection. LUNG: No focal consolidation, nodules or masses. PLEURA: No pleural effusion or pneumothorax. MEDIASTINUM: Normal heart size. Tips of left subclavian pulse generator device leads lie in the right atrium, right ventricle, and a branch of the coronary sinus. No pericardial effusion. No hilar or mediastinal lymphadenopathy. No evidence of septal bowing or right heart strain. CHEST WALL/AXILLA: No axillary or internal mammary lymphadenopathy. OSSEOUS STRUCTURES: No acute finding. T7 bone island UPPER ABDOMEN: Normal variant origin of the right hepatic artery from the superior mesenteric artery. No reflux of contrast into the hepatic veins to suggest elevated right heart pressures. CT/CT angio chest PE protocol IMPRESSION: No evidence of pulmonary embolism. VTE: negative
--- NOTE | ~2022-02-19 | XR_ITS ---
EXAMINATION: XR FOOT, RIGHT CLINICAL INFORMATION: Also with purulent discharge right toe COMPARISON: CT scan and plain film study of February 07, 2022 TECHNIQUE: AP, lateral, and oblique views of the right foot. FINDINGS: There is no evidence of acute fracture or dislocation of the right foot. Right foot joint spaces are maintained. There is some soft tissue swelling with soft tissue defects seen about the first digit. No definite erosive change or osteopenia to suggest acute osteomyelitis is identified. XR/XR foot RT min 3V IMPRESSION: No significant bony abnormality of the right foot identified. Soft tissue defect distal first phalanx. No definite evidence of acute osteomyelitis.
[2022-02-19 11:29] VITALS: BP 123/75; PULSE 124; RESP 16; TEMP 36.4; O2SAT 99; BMI 25.2
[2022-02-19 11:55] LABS: MANUAL DIFF FLAG NO
[2022-02-19 11:56] LABS: Basophils Percent Auto 0.3 % (0-2); Eosinophils Absolute Auto 0.3 X10*3/uL (0.0-0.4); Eosinophils Percent Auto 1.9 % (0-4); Hemoglobin 13.4 g/dl (12.0-16.0); Imm Gran Abs Auto 0.12 X10*3/uL (0.00-0.03); Imm Gran Pct Auto 0.8 % (0.0-0.4); Lymphocytes Absolute Auto 2.4 X10*3/uL (1.2-4.9); Lymphocytes Percent Auto 15.5 % (20-40); Mean Corpuscular HGB Conc 32.7 g/dl (31.0-35.0); Mean Corpuscular Hemoglobin 31.3 pg (27.0-33.0); Mean Corpuscular Volume 95.8 fL (80.0-98.0); Mean Platelet Volume 8.9 fL (9.4-12.3); Monocytes Absolute Auto 1.1 X10*3/uL (0.1-1.2); Monocytes Percent Auto 7.4 % (2-11); Neutrophils Absolute Auto 11.3 x10*3/uL (2.0-8.3); Neutrophils Percent Auto 74.1 % (45-73); Platelet Count 460 X10*3/uL (160-400); Red Blood Count 4.28 X10*6/uL (4.20-5.50); Red Cell Distribution Width 13.8 % (11.0-16.0); White Blood Count 15.3 X10*3/uL (4.8-10.8)
[2022-02-19] MEDS: ondansetron HCL 4 MG/2 ML VIAL IVPUSH (12:00)
[2022-02-19] MEDS: Morphine Sulfate 4 MG/ML CARTRIDGE IVPUSH (12:00)
[2022-02-19] MEDS: 0.9 % Sodium Chloride 1,000 ML 999 ML IV (12:01)
[2022-02-19 12:16] LABS: Anion Gap 14 (12-20); Blood Urea Nitrogen 10 mg/dL (9-16); Calcium 9.8 mg/dL (8.4-10.2); Carbon Dioxide 28 mmol/L (22-29); Chloride 99 mmol/L (96-108); Creatinine Clr Calc Pharmacy 88.2; Estimated Glomerular Filt Rate > 60; Glucose Random 111 mg/dL (60-115); Potassium 4.4 mmol/L (3.3-5.1); Sodium 137 mmol/L (135-145)
--- NOTE | 2022-02-19 12:30 | ED_ITS ---
HPI - Chest Pain General Chief Complaint: Chest Pain Stated Complaint: CP/Toe infection/DVT R leg/Vomiting Time Seen by Provider: 02/19/22 11:37 Source: patient Mode of arrival: ambulatory Limitations: no limitations History of Present Illness HPI narrative: Patient presents emergency department for evaluation of her right toe ulcer, chest pain, shortness of breath. She states that she was discharged 02/13/2022, she feels over the past couple of days her right great toe has been more swollen, feels that it is darker in color, and she is having increased purulent drainage in pain. Since her discharge from the hospital she says that she is vomiting daily, approximately 2 hours after taking her meds, has subsequent nausea throughout the day. She is additionally reporting substernal chest pain that is been constant with onset 2 days ago, is described as sharp in nature, is made worse by deep inspiration, it radiates diffusely to the right side of her chest, and she has associated shortness of breath that she reports while at rest and on exertion. When her chest pain is very bad she feels lightheaded. She reports compliance with Eliquis and doxycycline. Denies fevers, chills, neck pain, neck stiffness, palpitations, abdominal pain, dysuria, urinary frequency, numbness or tingling of her extremities, generalized weakness, inability to walk, possibility of Related Data Home Medications Medication Instructions Recorded Confirmed acetaminophen 325 mg tablet 650 mg PO Q6H PRN Pain 02/07/22 02/07/22 Previous Rx's Medication Instructions Recorded apixaban 5 mg tablet (Eliquis) 5 mg PO BID #60 tabs 02/13/22 apixaban 5 mg tablet (Eliquis) 10 mg PO BID #26 tabs 02/13/22 doxycycline monohydrate 100 mg 100 mg PO BID #14 caps 02/13/22 capsule oxycodone 5 mg tablet 5 mg PO Q4H PRN Pain, Severe (Pain 02/13/22 Scale 7-10) #30 tabs Allergies Allergy/AdvReac Type Severity Reaction Status Date / Time No Known Allergies Allergy Verified 10/27/21 15:29 Review of Systems Review of Systems: Pertinent positives as noted in HPI, all other 10 point review of systems unremarkable Yes all other systems are reviewed and are negative PMFSH Past Medical History Attestation statement: The following information was validated with the patient. Source: old records reviewed Medical History Complete heart block Foot lesion History of cardiac pacemaker Pacemaker Seasonal allergies Family History Family History Mother Prediabetes Social History Social History Household Members: Family Housing: Apartment Do you presently have visiting nurse or other home services: No Alcohol intake: current Alcohol intake frequency: holidays/special occasions only Alcohol type: wine Patient Tobacco Use Status: Never used Tobacco Substance Use Type: Marijuana Advance Directives: No Advance Directives Information Provided: Yes service: No Current occupational status: unemployed Physical Exam Vital Signs: Vital Signs: Last Vital Signs Temp 97.5 F 02/19/22 11:29 Pulse 94 02/19/22 14:27 Resp 16 02/19/22 14:27 BP 108/64 02/19/22 14:27 Pulse Ox 99 02/19/22 14:27 O2 Del Method 02/19/22 14:27 BMI result Body Mass Index 25.2 Vital signs have been reviewed as normal and appeared to be correct. Blood pressure normal.? Tachycardic? Respiration rate normal. Temperature normal.? Oxygen saturation normal. Appearance: Alert.?Oriented to person, place and time. No acute distress.?Nor mal affect. Eyes: Pupils equal, round and reactive to light.? ENT: Pharynx normal.?? Neck: Normal inspection.? Neck supple.?? CVS: Heart sounds normal. Tachycardia.? Pulses normal.?? Respiratory: No respiratory distress.? Lung sounds clear to auscultation bilaterally?? Abdomen: Soft and non-tender. Normoactive bowel sounds. No pulsatile mass.?? Skin: Skin warm and dry.? Normal skin color. ? ? Extremities: No lower extremity edema.? No calf ttp? Neuro: Moves all extremities spontaneously. Sensation intact bilaterally. CN II- XII intact. No focal neuro deficits. Ambulates with normal steady gait. 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 She was recently admitted inpatient with [facility] 02/07/2022 and discharged 02/13/2022. She presents for evaluation of worsening of right great toe symptoms, and new onset of chest pain. Presented tachycardic 130s, no hypoxia or tachypnea, given the embolic disease of the lower extremities despite being on Eliquis for the past week, will obtain CT angio of the chest to exclude pulmonary embolism. In addition CBC to evaluate for leukocytosis/ anemia, CMP and lipase to evaluate for abnormal electrolytes /abnormal renal function/ abnormal hepatic/biliary function, EKG and troponin to evaluate for ischemia/ACS. Chest x-ray to evaluate for consolidation/ infiltrate/ mass/ pulmonary congestion and repeat XR of the right foot to assess for bony involvement. Reevaluation(s) Reevaluation #1: XR of the right foot without obvious evidence of bony abnormality. Chest x-ray with no acute cardiopulmonary process. CBC reveals leukocytosis 15.3, down from prior on 02/12 of 25.3. CMP is overall unremarkable, very mildly elevated transaminases AST/ALT 33/48, lipase not elevated. No lactic acidosis. Troponin >3.5, EKG reveals ventricular paced rhythm, no acute ischemic findings, not consistent with ACS. CTA of the chest is pending. Time: 13:47 Reevaluation #2: CT angio of the chest unremarkable, no pulmonary embolism. Suspect that the chest pain she is experiencing is likely muscular in nature given she has been having multiple episodes of vomiting. Vomiting most likely secondary to antibiotic. Right great toe actually appears to have less erythema and swelling in comparison to prior photos in her chart. Leukocytosis is improving. Do not suspect that she requires inpatient admission at this time, would advise that patient continue taking for doxycycline as prescribed, oxycodone as needed for pain, and outpatient follow-up with vascular Services. Reviewed all findings wi th patient, discussed worrisome signs and symptoms that she should return back to the emergency department for. All questions were answered, she was discharged home in stable condition. Time: 15:45 [facility] - Chest Pain Medical Records Data Attestation: I reviewed the patient's medical records. Lab Data Attestation: I reviewed the patient's lab results. Result diagrams: 02/19/22 11:49 02/19/22 12:09 Labs: Lab Results 02/19/22 02/19/22 02/19/22 Range/Units 11:49 11:49 11:49 WBC 15.3 H (4.8-10.8) X10*3/uL RBC 4.28 (4.20-5.50) X10*6/uL Hgb 13.4 (12.0-16.0) g/dl Hct 41.0 (37.0-47.0) % MCV 95.8 (80.0-98.0) fL MCH 31.3 (27.0-33.0) pg MCHC 32.7 (31.0-35.0) g/dl RDW 13.8 (11.0-16.0) % Plt Count 460 H (160-400) X10*3/uL MPV 8.9 L (9.4-12.3) fL Immature Gran % (Auto) 0.8 H (0.0-0.4) % Neut % (Auto) 74.1 H (45-73) % Lymph % (Auto) 15.5 L (20-40) % [place] % (Auto) 7.4 (2-11) % Eos % (Auto) 1.9 (0-4) % Baso % (Auto) 0.3 (0-2) % Lymph # (Auto) 2.4 (1.2-4.9) X10*3/uL [place] # (Auto) 1.1 (0.1-1.2) X10*3/uL Eos # (Auto) 0.3 (0.0-0.4) X10*3/uL Baso # (Auto) 0.0 (0.0-0.2) X10*3/uL Abs Immat Gran (auto) 0.12 H (0.00-0.03) X10*3/uL Absolute Neuts (auto) 11.3 H (2.0-8.3) x10*3/uL Absolute Nucleated RBC 0.000 (0.0-0.012) X10*3/uL Nucleated RBC % (auto) 0.0 (0.0-0.2) /100WBC Hold Purple Top SEE NOTE Sodium 137 (135-145) mmol/L Potassium 4.4 (3.3-5.1) mmol/L Chloride 99 (96-108) mmol/L Carbon Dioxide 28 (22-29) mmol/L Anion Gap 14 (12-20) BUN 10 (9-16) mg/dL Creatinine 0.84 (0.5-1.4) mg/dL Estim Creat Clear Calc 88.2 Estimated GFR > 60 Random Glucose 111 (60-115) mg/dL Lactic Acid (0.5-2.0) mmol/L Calcium 9.8 (8.4-10.2) mg/dL Magnesium (1.6-2.6) mg/dL Total Bilirubin (0.0-1.0) mg/dL AST (5-31) U/L ALT (0-31) U/L Alkaline Phosphatase (39-117) U/L Troponin I High Sens (<3.5-17.0) ng/L Total Protein (6.5-8.0) g/dL Albumin (3.5-5.0) g/dL Lipase (8-78) U/L Beta HCG, Quant mIU/mL 02/19/22 02/19/22 02/19/22 Range/Units 12:09 12:09 12:09 WBC (4.8-10.8) X10*3/uL RBC (4.20-5.50) X10*6/uL Hgb (12.0-16.0) g/dl Hct (37.0-47.0) % MCV (80.0-98.0) fL MCH (27.0-33.0) pg MCHC (31.0-35.0) g/dl RDW (11.0-16.0) % Plt Count (160-400) X10*3/uL MPV (9.4-12.3) fL Immature Gran % (Auto) (0.0-0.4) % Neut % (Auto) (45-73) % Lymph % (Auto) (20-40) % [place] % (Auto) (2-11) % Eos % (Auto) (0-4) % Baso % (Auto) (0-2) % Lymph # (Auto) (1.2-4.9) X10*3/uL [place] # (Auto) (0.1-1.2) X10*3/uL Eos # (Auto) (0.0-0.4) X10*3/uL Baso # (Auto) (0.0-0.2) X10*3/uL Abs Immat Gran (auto) (0.00-0.03) X10*3/uL Absolute Neuts (auto) (2.0-8.3) x10*3/uL Absolute Nucleated RBC (0.0-0.012) X10*3/uL Nucleated RBC % (auto) (0.0-0.2) /100WBC Hold Purple Top Sodium 137 (135-145) mmol/L Potassium 4.1 (3.3-5.1) mmol/L Chloride 100 (96-108) mmol/L Carbon Dioxide 28 (22-29) mmol/L Anion Gap 13 (12-20) BUN 10 (9-16) mg/dL Creatinine 0.79 (0.5-1.4) mg/dL Estim Creat Clear Calc 93.8 Estimated GFR > 60 Random Glucose 107 (60-115) mg/dL Lactic Acid (0.5-2.0) mmol/L Calcium 9.8 (8.4-10.2) mg/dL Magnesium 2.0 (1.6-2.6) mg/dL Total Bilirubin 0.2 (0.0-1.0) mg/dL AST 33 H D (5-31) U/L ALT 48 H (0-31) U/L Alkaline Phosphatase 92 (39-117) U/L Troponin I High Sens < 3.5 (<3.5-17.0) ng/L Total Protein 7.5 (6.5-8.0) g/dL Albumin 4.4 (3.5-5.0) g/dL Lipase 7 L (8-78) U/L Beta HCG, Quant < 2 mIU/mL 02/19/22 Range/Units 12:20 WBC (4.8-10.8) X10*3/uL RBC (4.20-5.50) X10*6/uL Hgb (12.0-16.0) g/dl Hct (37.0-47.0) % MCV (80.0-98.0) fL MCH (27.0-33.0) pg MCHC (31.0-35.0) g/dl RDW (11.0-16.0) % Plt Count (160-400) X10*3/uL MPV (9.4-12.3) fL Immature Gran % (Auto) (0.0-0.4) % Neut % (Auto) (45-73) % Lymph % (Auto) (20-40) % [place] % (Auto) (2-11) % Eos % (Auto) (0-4) % Baso % (Auto) (0-2) % Lymph # (Auto) (1.2-4.9) X10*3/uL [place] # (Auto) (0.1-1.2) X10*3/uL Eos # (Auto) (0.0-0.4) X10*3/uL Baso # (Auto) (0.0-0.2) X10*3/uL Abs Immat Gran (auto) (0.00-0.03) X10*3/uL Absolute Neuts (auto) (2.0-8.3) x10*3/uL Absolute Nucleated RBC (0.0-0.012) X10*3/uL Nucleated RBC % (auto) (0.0-0.2) /100WBC Hold Purple Top Sodium (135-145) mmol/L Potassium (3.3-5.1) mmol/L Chloride (96-108) mmol/L Carbon Dioxide (22-29) mmol/L Anion Gap (12-20) BUN (9-16) mg/dL Creatinine (0.5-1.4) mg/dL Estim Creat Clear Calc Estimated GFR Random Glucose (60-115) mg/dL Lactic Acid 1.6 (0.5-2.0) mmol/L Calcium (8.4-10.2) mg/dL Magnesium (1.6-2.6) mg/dL Total Bilirubin (0.0-1.0) mg/dL AST (5-31) U/L ALT (0-31) U/L Alkaline Phosphatase (39-117) U/L Troponin I High Sens (<3.5-17.0) ng/L Total Protein (6.5-8.0) g/dL Albumin (3.5-5.0) g/dL Lipase (8-78) U/L Beta HCG, Quant mIU/mL Imaging Data CT scan - chest: Radiologist's impression: CT/CT angio chest PE protocol IMPRESSION: ? No evidence of pulmonary embolism. Chest x-ray: Radiologist's impression: FINDINGS: There is no evidence of acute parenchymal disease, pneumothorax, or pleural effusion. Heart normal size. No evidence of pulmonary edema. Pacemaker in place. XR/XR chest 2V IMPRESSION: No acute disease. R foot XR: Radiologist's impression: XR/XR foot RT min 3V IMPRESSION: No significant bony abnormality of the right foot identified. Soft tissue defect distal first phalanx. ? No definite evidence of acute osteomyelitis. ECG Data ECG #1: Attestation: I personally reviewed and interpreted this ECG as follows: ECG interpretation date: 02/19/22 Interpretation: Rate: 120 Rhythm:? Atrial sensed ventricular paced rhythm Normal QRS complex.?? ST T wave :??No ST elevation, no ST depression qTC: 449 prior studies:? May 2011 The study has been interpreted contemporaneously by me. Discharge Plan Discharge Clinical Impression: Costochondritis, Cellulitis, Foot lesion Patient Disposition: Home, Self-Care Instructions: Cellulitis (ED), Costochondritis (ED) Additional Instructions: As we discussed, your blood work was overall unremarkable today. The CT that we performed of your chest does not show any evidence of a blood clot in your lungs. The pain in your chest is most likely muscular secondary to the vomiting that you have been experiencing. You should continue follow-up with the vascular surgeon regarding the nonhealing wound of your right foot. You may return to the emergency department any new or worsening symptoms or concerns. Prescriptions: No Action acetaminophen 325 mg Tablet 650 mg PO Q6H PRN (Reason: Pain) oxycodone 5 mg Tablet 5 mg PO Q4H PRN (Reason: Pain, Severe (Pain Scale 7-10)) Qty: 30 0RF Rx Instructions: Partial Fill upon patient request. Eliquis 5 mg Tablet 10 mg PO BID Qty: 26 0RF doxycycline monohydrate 100 mg capsule 100 mg PO BID Qty: 14 0RF Eliquis 5 mg tablet 5 mg PO BID Qty: 60 1RF Rx Instructions: to start on 02/20/22 Referrals: Guerrero Germain MD [Physician] - Interventions: ED Discharge Assessment Last Done: 02/19/22 16:18
[2022-02-19 12:36] LABS: Lactic Acid 1.6 mmol/L (0.5-2.0)
[2022-02-19 12:45] LABS: Alanine Aminotransferase 48 U/L (0-31); Albumin Level 4.4 g/dL (3.5-5.0); Alkaline Phosphatase 92 U/L (39-117); Anion Gap 13 (12-20); Aspartate Amino Transferase 33 U/L (5-31); Bilirubin Total 0.2 mg/dL (0.0-1.0); Blood Urea Nitrogen 10 mg/dL (9-16); Calcium 9.8 mg/dL (8.4-10.2); Carbon Dioxide 28 mmol/L (22-29); Chloride 100 mmol/L (96-108); Creatinine Clr Calc Pharmacy 93.8; Estimated Glomerular Filt Rate > 60; Glucose Random 107 mg/dL (60-115); Lipase 7 U/L (8-78); Potassium 4.1 mmol/L (3.3-5.1); Sodium 137 mmol/L (135-145); Total Protein 7.5 g/dL (6.5-8.0)
[2022-02-19 12:49] LABS: HCG Quantitative < 2 mIU/mL; Troponin-I High Sensitivity < 3.5 ng/L (<3.5-17.0)
[2022-02-19] MEDS: iohexoL 350 MG/ML 100 ML INFUS..BTL IV (13:26)
[2022-02-19 14:27] VITALS: BP 108/64; PULSE 94; RESP 16; O2SAT 99
== END 2022-02-19 16:20 | disposition home or self-care (01) ==
PROVIDERS: Nurse Practitioner Family; Emergency Provider Emergency Medicine; PCP Internal Medicine
DX: M94.0 Chondrocostal junction syndrome [Tietze] (principal); L03.031 Cellulitis of right toe; M79.671 Pain in right foot; R11.10 Vomiting, unspecified; R06.02 Shortness of breath; F12.90 Cannabis use, unspecified, uncomplicated; Z95.0 Presence of cardiac pacemaker; Z79.01 Long term (current) use of anticoagulants; Z79.899 Other long term (current) drug therapy
CPT/HCPCS: 36415; 71046; 71275; 73630; 80048; 80053; 83605; 83690; 83735; 84484; 84702; 85025; 87040; 93005; 96361; 96374; 96375; 99284; 99285; J2270; J2405; Q9967

== ENCOUNTER → 2022-04-22 11:38 | Outpatient (BNVA) | payer MEDICAID, SELFPAY | PROVIDERS: PCP Internal Medicine; Visit Provider Obstetrics & Gynecology | DX: R87.612 Low grade squamous intraepithelial lesion on cytologic smear of cervix (LGSIL) (principal) | CPT/HCPCS: 99202 ==

== ENCOUNTER 2023-10-14 12:16 | Outpatient (REF) | payer MEDICAID, SELFPAY ==
[2023-10-14 12:30] LABS: MANUAL DIFF FLAG NO
[2023-10-14 13:03] LABS: Basophils Absolute Auto 0.1 X10*3/uL (0.0-0.2); Basophils Percent Auto 0.6 % (0-2); Eosinophils Absolute Auto 0.4 X10*3/uL (0.0-0.4); Hematocrit 45.1 % (37.0-47.0); Hemoglobin 14.5 g/dl (12.0-16.0); Imm Gran Abs Auto 0.02 X10*3/uL (0.00-0.03); Imm Gran Pct Auto 0.3 % (0.0-0.4); Lymphocytes Absolute Auto 1.9 X10*3/uL (1.2-4.9); Lymphocytes Percent Auto 24.1 % (20-40); Mean Corpuscular HGB Conc 32.2 g/dl (31.0-35.0); Mean Corpuscular Hemoglobin 28.8 pg (27.0-33.0); Mean Corpuscular Volume 89.5 fL (80.0-98.0); Mean Platelet Volume 9.4 fL (9.4-12.3); Monocytes Absolute Auto 0.6 X10*3/uL (0.1-1.2); Monocytes Percent Auto 7.4 % (2-11); Neutrophils Percent Auto 62.6 % (45-73); Platelet Count 441 X10*3/uL (160-400); Red Blood Count 5.04 X10*6/uL (4.20-5.50); Red Cell Distribution Width 17.6 % (11.0-16.0); White Blood Count 7.9 X10*3/uL (4.8-10.8)
[2023-10-14 13:19] LABS: Alanine Aminotransferase 13 U/L (0-31); Albumin Level 4.8 g/dL (3.5-5.0); Alkaline Phosphatase 76 U/L (39-117); Anion Gap 10 (12-20); Aspartate Amino Transferase 17 U/L (5-31); Bilirubin Total 0.6 mg/dL (0.0-1.0); Blood Urea Nitrogen 11 mg/dL (9-16); Calcium 9.8 mg/dL (8.4-10.2); Carbon Dioxide 27 mmol/L (22-29); Chloride 107 mmol/L (96-108); Estimated Glomerular Filt Rate > 60; Glucose Random 97 mg/dL (60-115); Potassium 4.2 mmol/L (3.3-5.1); Sodium 140 mmol/L (135-145); Total Protein 8.1 g/dL (6.5-8.0)
[2023-10-14 13:23] LABS: Rheumatoid Factor < 13.0 IU/mL (<15.0)
[2023-10-14 13:39] LABS: Ferritin 14 ng/mL (10-122); Thyroid Stimulating Hormone 1.31 uIU/mL (0.32-4.0)
[2023-10-14 13:54] LABS: Erythrocyte Sedimentation Rate 5 MM/HR (0-20)
[2023-10-17 14:19] LABS: Cyclic Citrullinated Peptide <16 UNITS
== END 2023-10-14 12:17 | disposition home or self-care (01) ==
LOC: HO.LAB 12:16
PROVIDERS: PCP Internal Medicine; Visit Provider Internal Medicine
DX: M13.0 Polyarthritis, unspecified (principal); R53.83 Other fatigue; R63.4 Abnormal weight loss; Z95.828 Presence of other vascular implants and grafts
CPT/HCPCS: 36415; 80053; 82728; 84443; 85025; 85652; 86200; 86431

== ENCOUNTER 2024-01-12 14:28 | Outpatient (AMB) | payer MEDICAID, SELFPAY ==
[2024-01-12 14:39] VITALS: BP 112/62; PULSE 78; BMI 23.4
--- NOTE | 2024-01-12 14:39 | A.OFFVIS_ITS ---
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 Previously seen [facility]. She states that her care was then transferred to [facility], but she hasn't seen anyone there yet. Seems that she probably had complete heart block around the age of 7-8 and then got pacemaker. Currently, she has a SQUARE DANCE CALLER device in place. Some chronic shortness of breath with exertion, but otherwise no specific symptoms. No other cardiac concerns. There is also history of right lower extremity bypass surgery for gangrenous toe. Uncertain etiology for this. Followed by vascular surgery. [facility] Medical History (Updated 01/12/24 @ 14:59 by Jake Spears MD) Cardiac resynchronization therapy pacemaker (SQUARE DANCE CALLER-P) in place PAD (peripheral artery disease) Foot lesion History of cardiac pacemaker Complete heart block Seasonal allergies Pacemaker Surgical History H/O foot surgery Family History Mother Prediabetes Social History Household Members: Family Housing: Apartment Do you presently have visiting nurse or other home services: No Alcohol intake: current Alcohol intake frequency: holidays/special occasions only Alcohol type: wine Patient Tobacco Use Status: Never used Tobacco Substance Use Type: Marijuana service: No Current occupational status: unemployed Female Reproductive History Menstrual Age of Menarche: 13 Review of Systems Const Denies weakness ENT Denies dizziness Card Denies chest pain, Denies chest pain with activity, Denies syncope, Denies rapid heart rate, Denies pedal edema, Denies edema, Denies leg edema, Denies lightheadedness, Denies palpitations, Reports dyspnea, Reports dyspnea on exertion and Denies orthopnea Resp Denies cough, Reports dyspnea and Reports dyspnea on exertion GI Denies hematochezia and Denies change in stool character Musc Denies abnormal gait, Denies muscle cramps, Denies muscle weakness, Denies numbness, Denies radiating pain into limb and Denies tingling Neuro Denies abnormal gait, Denies dizziness, Denies syncope, Denies numbness, Denies tingling and Denies weakness Endo Denies palpitations Physical Exam Vital Signs: Last Vital Signs Pulse 78 01/12/24 14:39 BP 112/62 01/12/24 14:39 BMI result Body Mass Index 23.4 Office Procedures Cardiac Device Check Cardiac Device Check Details: Pacemaker interrogated today. SQUARE DANCE CALLER device. Programmed DDD. Battery status 4 years. Normal lead parameters. Atrial pacing 2.9%. Ventricular pacing 100%. Minimal atrial arrhythmia burden. No episodes. OptiVol was high in November but not since. Overall, normal function. [id number] Cardiac Device Interrogation, pacemaker Procedure code (CPT) selection complete EKG Details: EKG with atrial sensed, ventricular paced rhythm at 78/Min; rightward axis. [id number], Complete Assessment & Plan Assessment & Plan (1) Complete heart block: Code(s): I44.2 - Atrioventricular block, complete Category: Medical (2) Cardiac resynchronization therapy pacemaker (SQUARE DANCE CALLER-P) in place: Code(s): Z95.0 - Presence of cardiac pacemaker Category: Medical Plan Normally functioning SQUARE DANCE CALLER device on today's interrogation. Will get an echocardiogram for cardiac function assessment. Need to obtain records from [facility]. Follow-up in a few weeks' time. Orders: Orders CA echo transthoracic complete Today I44.2 - Atrioventricular block, complete, Z95.0 - Presence of cardiac pacemaker Coding Level of Care Code New Pt Level 4 (75564) Diagnoses Complete heart block I44.2 Cardiac resynchronization therapy pacemaker (SQUARE DANCE CALLER-P) in place Z95.0 CPT Codes Cardiac Device Check - Cardiac Device 12: [id number] Cardiac Device Interrogation, pacemaker ([id number]) EKG - CPT: 13436-[id number], Complete ([id number])
== END 2024-01-12 15:09 | disposition home or self-care (01) ==
PROVIDERS: PCP Internal Medicine; Visit Provider Internal Medicine
DX: I44.2 Atrioventricular block, complete (principal); Z95.0 Presence of cardiac pacemaker
CPT/HCPCS: 93010; 93281; 99204

== ENCOUNTER → 2024-01-12 14:28 | Outpatient (BNVA) | payer MEDICAID, SELFPAY | PROVIDERS: PCP Internal Medicine; Visit Provider Internal Medicine | DX: Z45.018 Encounter for adjustment and management of other part of cardiac pacemaker (principal); I44.2 Atrioventricular block, complete | CPT/HCPCS: 93005; 99202 ==

== ENCOUNTER → 2024-03-17 23:59 | Outpatient (BNV) | payer MEDICAID, SELFPAY ==
--- NOTE | 2024-03-25 13:32 | A.OFFVIS_ITS ---
Intake Visit Reasons: Remote device check- Medtronic Allergies Seasonal Allergies Allergy (Mild, Verified 01/12/24 14:42) Sneezing PFSH Medical History (Updated 01/12/24 @ 14:59 by Jake Spears MD) Cardiac resynchronization therapy pacemaker (CASE MANAGEMENT MANAGER-P) in place PAD (peripheral artery disease) Foot lesion History of cardiac pacemaker Complete heart block Seasonal allergies Pacemaker Surgical History H/O foot surgery Family History Mother Prediabetes Social History Household Members: Family Housing: Apartment Do you presently have visiting nurse or other home services: No Alcohol intake: current Alcohol intake frequency: holidays/special occasions only Alcohol type: wine Patient Tobacco Use Status: Never used Tobacco Substance Use Type: Marijuana service: No Current occupational status: unemployed Female Reproductive History Menstrual Age of Menarche: 13 Office Procedures Cardiac Device Check Cardiac Device Check Details: Date of service- 03/17/2024 ; Battery life 3.9 years; normal lead parameters; AP 2.5%; TANK FILLER 100%; brief runs of atrial tachycardia. Overall normal device function. [id number] Cardiac Device Interrogation, pacemaker Procedure code (CPT) selection complete Assessment & Plan Assessment & Plan (1) Complete heart block: Code(s): I44.2 - Atrioventricular block, complete Category: Medical (2) Cardiac resynchronization therapy pacemaker (CASE MANAGEMENT MANAGER-P) in place: Code(s): Z95.0 - Presence of cardiac pacemaker Category: Medical Plan x Coding Level of Care Code Procedure Only Diagnoses Complete heart block I44.2 Cardiac resynchronization therapy pacemaker (CASE MANAGEMENT MANAGER-P) in place Z95.0 CPT Codes Cardiac Device Check - Cardiac Device 12: [id number] Cardiac Device Interrogation, pacemaker ([id number])
== END ==
PROVIDERS: PCP Internal Medicine; Visit Provider Internal Medicine
DX: I44.2 Atrioventricular block, complete (principal); Z95.0 Presence of cardiac pacemaker
CPT/HCPCS: 93294

== ENCOUNTER → 2024-03-17 23:59 | Outpatient (BNV) | payer MEDICAID, SELFPAY ==
--- NOTE | 2024-03-25 12:51 | A.OFFVIS_ITS ---
Intake Visit Reasons: Remote HF monitoring- Medtronic Allergies Seasonal Allergies Allergy (Mild, Verified 01/12/24 14:42) Sneezing PFSH Medical History (Updated 01/12/24 @ 14:59 by Jake Spears MD) Cardiac resynchronization therapy pacemaker (NEW CLIENT BANKING SERVICES CLERK-P) in place PAD (peripheral artery disease) Foot lesion History of cardiac pacemaker Complete heart block Seasonal allergies Pacemaker Surgical History H/O foot surgery Family History Mother Prediabetes Social History Household Members: Family Housing: Apartment Do you presently have visiting nurse or other home services: No Alcohol intake: current Alcohol intake frequency: holidays/special occasions only Alcohol type: wine Patient Tobacco Use Status: Never used Tobacco Substance Use Type: Marijuana service: No Current occupational status: unemployed Female Reproductive History Menstrual Age of Menarche: 13 Office Procedures Cardiac Device Check Cardiac Device Check Details: Date of service- 03/17/2024; based on impedance data and physiological variables, there is no evidence of worsening congestive heart failure. [id number] Cardiac Device Interrogation, cardio physiologic monitor Procedure code (CPT) selection complete Assessment & Plan Assessment & Plan (1) Complete heart block: Code(s): I44.2 - Atrioventricular block, complete Category: Medical (2) Cardiac resynchronization therapy pacemaker (NEW CLIENT BANKING SERVICES CLERK-P) in place: Code(s): Z95.0 - Presence of cardiac pacemaker Category: Medical Plan x Coding Level of Care Code Procedure Only Diagnoses Complete heart block I44.2 Cardiac resynchronization therapy pacemaker (NEW CLIENT BANKING SERVICES CLERK-P) in place Z95.0 CPT Codes Cardiac Device Check - Cardiac Device 15: [id number] Cardiac Device Interrogation, cardio physiologic monitor ([id number])
== END ==
PROVIDERS: PCP Internal Medicine; Visit Provider Internal Medicine
DX: I44.2 Atrioventricular block, complete (principal); Z95.0 Presence of cardiac pacemaker
CPT/HCPCS: 93297

== ENCOUNTER → 2024-06-23 23:59 | Outpatient (BNV) | payer MEDICAID, SELFPAY ==
--- NOTE | 2024-07-04 19:00 | MHC.OFFVIS ---
Intake Visit Reasons: Remote device check- Medtronic Allergies Seasonal Allergies Allergy (Mild, Verified 01/12/24 14:42) Sneezing PFSH Medical History (Updated 01/12/24 @ 14:59 by Jake Spears MD) Cardiac resynchronization therapy pacemaker (CASHIER MANAGER-P) in place PAD (peripheral artery disease) Foot lesion History of cardiac pacemaker Complete heart block Seasonal allergies Pacemaker Surgical History H/O foot surgery Family History Mother Prediabetes Social History Household Members: Family Housing: Apartment Do you presently have visiting nurse or other home services: No Alcohol intake: current Alcohol intake frequency: holidays/special occasions only Alcohol type: wine Patient Tobacco Use Status: Never used Tobacco Substance Use Type: Marijuana service: No Current occupational status: unemployed Female Reproductive History Menstrual Age of Menarche: 13 Office Procedures Cardiac Device Check Cardiac Device Check Details: Date of service- 06/23/2024 ; Battery life >3 years; normal lead parameters; AP 1.5%; LOSS PREVENTION COORDINATOR 100%; atrial tach episodes, brief; no other significant arrhythmias. Overall normal device function. [id number] Cardiac Device Interrogation, pacemaker Procedure code (CPT) selection complete Assessment & Plan Assessment & Plan (1) Cardiac resynchronization therapy pacemaker (CASHIER MANAGER-P) in place: Code(s): Z95.0 - Presence of cardiac pacemaker Category: Medical (2) Complete heart block: Code(s): I44.2 - Atrioventricular block, complete Category: Medical Plan x Coding Level of Care Code Procedure Only Diagnoses Cardiac resynchronization therapy pacemaker (CASHIER MANAGER-P) in place Z95.0 Complete heart block I44.2 CPT Codes Cardiac Device Check - Cardiac Device 12: [id number] Cardiac Device Interrogation, pacemaker ([id number])
== END ==
PROVIDERS: PCP Internal Medicine; Visit Provider Internal Medicine
DX: I44.2 Atrioventricular block, complete (principal); Z95.0 Presence of cardiac pacemaker
CPT/HCPCS: 93294

== ENCOUNTER → 2024-09-23 23:59 | Outpatient (BNV) | payer MEDICAID, SELFPAY ==
--- NOTE | 2024-09-27 12:00 | A.OFFVIS_ITS ---
Intake Visit Reasons: Remote device check- Medtronic Allergies Seasonal Allergies Allergy (Mild, Verified 09/25/24 12:59) Sneezing PFSH Medical History Cardiac resynchronization therapy pacemaker (APPLICATIONS SUPPORT ENGINEER-P) in place PAD (peripheral artery disease) Foot lesion History of cardiac pacemaker Complete heart block Seasonal allergies Pacemaker Surgical History H/O foot surgery Family History Mother Prediabetes Social History Household Members: Family Housing: Apartment Do you presently have visiting nurse or other home services: No Alcohol intake: current Alcohol intake frequency: holidays/special occasions only Alcohol type: wine Patient Tobacco Use Status: Never used Tobacco Smoked in Last 30 Days: No Use of substances other than those prescribed or required for medical reasons: No Substance Use Type: Marijuana Advance Directives: No Advance Directives Information Provided: No Do you have a plan to hurt others: No Plan service: No Current occupational status: unemployed Female Reproductive History Menstrual Age of Menarche: 13 Office Procedures Cardiac Device Check Cardiac Device Check Details: Date of service- 09/23/2024 ; Battery life >3 years; normal lead parameters; AP 1.7%; MEDICAL OFFICE ASSISTANT 100%; no significant arrhythmias. Overall normal device function. [id number] Cardiac Device Interrogation, pacemaker Procedure code (CPT) selection complete Assessment & Plan Assessment & Plan (1) Cardiac resynchronization therapy pacemaker (APPLICATIONS SUPPORT ENGINEER-P) in place: Code(s): Z95.0 - Presence of cardiac pacemaker Category: Medical (2) Complete heart block: Code(s): I44.2 - Atrioventricular block, complete Category: Medical Plan x Coding Level of Care Code Procedure Only Diagnoses Cardiac resynchronization therapy pacemaker (APPLICATIONS SUPPORT ENGINEER-P) in place Z95.0 Complete heart block I44.2 CPT Codes Cardiac Device Check - Cardiac Device 12: [id number] Cardiac Device Interrogation, pacemaker ([id number])
== END ==
PROVIDERS: PCP Internal Medicine; Visit Provider Internal Medicine
DX: I44.2 Atrioventricular block, complete (principal); Z95.0 Presence of cardiac pacemaker
CPT/HCPCS: 93294

== ENCOUNTER 2024-09-25 12:38 | Emergency (ER) | payer MEDICAID, SELFPAY ==
--- NOTE | ~2024-09-25 | CT_ITS ---
CLINICAL HISTORY: Lower abd. pain, r o kidney stone vs ovarian cyst. CT abdomen and pelvis without contrast Comparison: 02/12/2022 Findings: Lung bases clear. No acute bony abnormality. Liver and spleen within normal limits. Pancreas and adrenal glands unremarkable. Gallbladder contracted and not well visualized. No bilateral renal stone or hydronephrosis. No focal renal abnormality or ureteral dilation. No evidence for aortic aneurysm. No free fluid or adenopathy in the pelvis. No diverticulitis. Appendix unremarkable. Uterus normal size. No right adnexal abnormality. 3.6 cm left ovarian cyst. Impression: 3.6 cm left ovarian cyst Otherwise unremarkable This document has been electronically signed by: Levy Jamison MD on 09/25/2024 21:05:39
[2024-09-25 12:59] VITALS: BP 107/78; PULSE 96; RESP 16; TEMP 36.8; O2SAT 100; BMI 27.9
--- NOTE | 2024-09-25 13:04 | ED_ITS ---
HPI - General Adult General Chief complaint: Abdominal Pain Stated complaint: abd pain Time Seen by Provider: 09/25/24 20:01 Source: patient Mode of arrival: ambulatory Limitations: no limitations History of Present Illness ED Provider: DR. Almeida HPI narrative: 28-year-old female came in for evaluation of lower abdominal pain for about 4 weeks started in the left lower quadrant area now it is migrating to the right lower quadrant area, no nausea, no vomiting, no fever, no chills patient reported frequency urination with no dysuria or hematuria. No vaginal discharge, patient is hemo sexual did not have sex with male for the past few years. No previous intra-abdominal surgery in the past. Pacemaker placed at young age for complete heart block, no chest pain, no shortness of breath. Related Data Home Medications ?Medication ?Instructions ?Recorded ?Confirmed acetaminophen 325 mg tablet 650 mg PO Q6H PRN Pain 01/12/24 01/12/24 cilostazol 100 mg tablet 100 mg PO BID 01/12/24 01/12/24 Allergies Allergy/AdvReac Type Severity Reaction Status Date / Time Seasonal Allergies Allergy Mild Sneezing Verified 09/25/24 12:59 Review of Systems 2 Review of Systems: All other systems are reviewed and are negative Constitutional: Reports as per HPI and Reports no additional constitutional complaints Eyes: Reports as per HPI and Reports no additional eye complaints Reports system reviewed and no additional complaints, except as documented Cardiovascular: Reports as per HPI and Reports no additional cardiovascular complaints Respiratory: Reports as per HPI and Reports no additional respiratory complaints Gastrointestinal: Reports as per HPI and Reports no additional gastrointestinal complaints Genitourinary: Reports no additional female genitourinary complaints Musculoskeletal: Reports no additional musculoskeletal complaints Skin/Breast: Reports system reviewed and no additional complaints, except as docu Psychiatric: Reports no additional psychiatric complaints Endocrine: Reports no additional endocrine complaints Hematologic/Lymphatic: Reports no additional hematologic/lymphatic complaints Allergic/Immunologic: Reports no additional allergic/immunologic complaints Reports system reviewed and no additional complaints, except as documented and Reports Abnormal speech present [facility] Past Medical History Medical History Cardiac resynchronization therapy pacemaker (SUPERVISOR FINE GRADING-P) in place PAD (peripheral artery disease) Foot lesion History of cardiac pacemaker Complete heart block Seasonal allergies Pacemaker Surgical History H/O foot surgery Family History Family History Mother Prediabetes Social History Social History Household Members: Family Housing: Apartment Do you presently have visiting nurse or other home services: No Alcohol intake: current Alcohol intake frequency: holidays/special occasions only Alcohol type: wine Patient Tobacco Use Status: Never used Tobacco Substance Use Type: Marijuana Advance Directives: No Advance Directives Information Provided: No Do you have a plan to hurt others: No Plan service: No Current occupational status: unemployed Physical Exam ED Vital Signs: Vital Signs - 24 hr 09/25/24 12:59 09/25/24 20:41 Temperature 98.3 F 98.9 F Pulse Rate 96 86 Respiratory Rate 16 16 Blood Pressure 107/78 106/75 Pulse Oximetry 100 99 Oxygen Delivery Method Room Air Room Air BMI result Body Mass Index 27.9 Vital signs have been reviewed and appear to be correct. Blood pressure elevated. Heart rate normal. Respiratory rate normal. Temperature normal. Oxygen saturation normal. Appearance: Alert. Oriented X3. No acute distress. Head: Normal external exam. Normocephalic. Atraumatic. No Michel signs noted. No raccoon eyes noted Eyes: PERRLA. EOMI. Conjunctiva and sclera normal. Eyelids normal. ENT: TM's Normal. Pharynx normal. Uvula midline. Moist mucous membranes. No trismus noted. No drooling noted. No muffled voice noted. Neck: Normal inspection. Neck supple. FROM. No adenopathy. Thyroid Normal. No meningeal signs. No neck mass noted. CVS: Normal heart rate and rhythm. Heart sound normal. No murmurs noted. Pulses normal throughout. Respiratory: No respiratory distress. Painless inspiration. Breath sounds normal. No wheezes/rales/rhonchi noted. Chest nontender. No accessory muscle usage noted or decreased air movement noted. Abdomen: Soft, mild lower abdominal tenderness, no rebound tenderness, no guarding. Bowel sounds normal in all 4 quadrants. No distention noted. No organomegaly noted. No visible injury noted. Back: No CVA tenderness. Full range of motion noted. Skin: Skin warm and dry. Normal skin color. Normal skin turgor. No rashes/lesions/lacerations noted. Extremities: No lower extremity edema. Extremities exhibit normal range of motion. Extremities nontender. Neuro: Oriented X 3. Cranial nerve exam: II-XII are grossly intact No motor deficit. No sensory deficit. Reflexes normal. Course Course Course Narrative: RME performed by Saloni Muhammad PA-C. Patient is a 28 year old assigned female at presenting to the emergency department with abdominal pain. Patient states she has had left sided abdominal pain for a month and a half and now it is on her right side. Detailed physical exam and review of systems are deferred to the behavior clinician. Labs and swabs ordered. Patient placed back in the waiting room pending room availability and results. Reevaluation(s) Reevaluation #1: Four weeks of lower abdominal pain, labs are unremarkable, CT abdomen and pelvis showing 3.5 cm left ovarian cyst, patient appeared comfortable with no acute distress to indicate ovarian torsion. Patient was instructed to follow-up with OBGYN for further evaluation. Time: 20:25 Medical Decision Making Differential Diagnosis Differential Diagnoses: The differential diagnosis associated with the presentation includes (Ovarian cyst, UTI, pyelonephritis, kidney stone, acute appendicitis, colitis, diverticulitis, pancreatitis, severe anemia, electrolyte derangement, .) Admission/Observation Consideration of admission/observation: Escalation of care including admission/observation considered Lab Data MDM Lab Attestation statement: I reviewed the patient's lab results. 09/25/24 13:18 09/25/24 13:18 Labs: Lab Results 09/25/24 09/25/24 Range/Units 13:18 20:38 WBC 8.6 (4.8-10.8) X10*3/uL RBC 4.60 (4.20-5.50) X10*6/uL Hgb 14.2 (12.0-16.0) g/dl Hct 42.8 (37.0-47.0) % MCV 93.0 (80.0-98.0) fL MCH 30.9 (27.0-33.0) pg MCHC 33.2 (31.0-35.0) g/dl RDW 13.2 (11.0-16.0) % Plt Count 425 H (160-400) X10*3/uL MPV 8.4 L (9.4-12.3) fL Immature Gran % (Auto) 0.2 (0.0-0.4) % Neut % (Auto) 52.5 (45-73) % Lymph % (Auto) 32.1 (20-40) % [place] % (Auto) 10.9 (2-11) % Eos % (Auto) 4.1 H (0-4) % Baso % (Auto) 0.2 (0-2) % Lymph # (Auto) 2.8 (1.2-4.9) X10*3/uL [place] # (Auto) 0.9 (0.1-1.2) X10*3/uL Eos # (Auto) 0.4 (0.0-0.4) X10*3/uL Baso # (Auto) 0.0 (0.0-0.2) X10*3/uL Abs Immat Gran (auto) 0.02 (0.00-0.03) X10*3/uL Absolute Neuts (auto) 4.5 (2.0-8.3) x10*3/uL Absolute Nucleated RBC 0.000 (0.0-0.012) X10*3/uL Nucleated RBC % (auto) 0.0 (0.0-0.2) /100WBC Sodium 140 (135-145) mmol/L Potassium 4.3 (3.3-5.1) mmol/L Chloride 105 (96-108) mmol/L Carbon Dioxide 28 (22-29) mmol/L Anion Gap 11 L (12-20) BUN 10 (9-16) mg/dL Creatinine 0.95 (0.5-1.4) mg/dL Estim Creat Clear Calc 80.2 Estimated GFR > 60 Random Glucose 94 (60-115) mg/dL Calcium 9.7 (8.4-10.2) mg/dL Magnesium 2.0 (1.6-2.6) mg/dL Total Bilirubin 0.4 (0.0-1.0) mg/dL AST 40 H (5-31) U/L ALT 47 H (0-31) U/L Alkaline Phosphatase 65 (39-117) U/L Total Protein 7.6 (6.5-8.0) g/dL Albumin 4.4 (3.5-5.0) g/dL Lipase 15 (8-78) U/L Beta HCG, Quant < 2 mIU/mL Urine Color Yellow Urine Appearance Turbid Urine pH 7.5 (5.0-9.0) Ur Specific [place] 1.025 (1.005-1.025) Urine Protein Trace (Neg-Trace) mg/dL Urine Glucose (UA) Negative (Negative) mg/dL Urine Ketones Negative (Negative) mg/dL Urine Blood Negative (Negative) Urine Nitrite Negative (Negative) Ur Leukocyte Esterase Negative (Negative) Influenza Type A (PCR) NEGATIVE (Negative) Influenza Type B (PCR) NEGATIVE (Negative) RSV RNA Qual (PCR) NEGATIVE (Negative) SARS-CoV-2 RNA (RT-PCR) NEGATIVE (Negative) Discharge Plan Discharge Clinical Impression: Abdominal pain, Ovarian cyst Patient Disposition: Home, Self-Care Prescriptions: No Action acetaminophen 325 mg tablet 650 mg PO Q6H PRN (Reason: Pain) cilostazol 100 mg tablet 100 mg PO BID Referrals: Elmira Recio MD [Primary Care Provider] - Alber Ragsdale MD [Physician] - Print Language: Chadian
[2024-09-25 13:22] LABS: MANUAL DIFF FLAG NO
[2024-09-25 13:23] LABS: Basophils Percent Auto 0.2 % (0-2); Eosinophils Absolute Auto 0.4 X10*3/uL (0.0-0.4); Eosinophils Percent Auto 4.1 % (0-4); Hematocrit 42.8 % (37.0-47.0); Hemoglobin 14.2 g/dl (12.0-16.0); Imm Gran Abs Auto 0.02 X10*3/uL (0.00-0.03); Imm Gran Pct Auto 0.2 % (0.0-0.4); Lymphocytes Absolute Auto 2.8 X10*3/uL (1.2-4.9); Lymphocytes Percent Auto 32.1 % (20-40); Mean Corpuscular HGB Conc 33.2 g/dl (31.0-35.0); Mean Corpuscular Hemoglobin 30.9 pg (27.0-33.0); Mean Platelet Volume 8.4 fL (9.4-12.3); Monocytes Absolute Auto 0.9 X10*3/uL (0.1-1.2); Monocytes Percent Auto 10.9 % (2-11); Neutrophils Absolute Auto 4.5 x10*3/uL (2.0-8.3); Neutrophils Percent Auto 52.5 % (45-73); Platelet Count 425 X10*3/uL (160-400); Red Cell Distribution Width 13.2 % (11.0-16.0); White Blood Count 8.6 X10*3/uL (4.8-10.8)
[2024-09-25 13:45] LABS: Alanine Aminotransferase 47 U/L (0-31); Albumin Level 4.4 g/dL (3.5-5.0); Alkaline Phosphatase 65 U/L (39-117); Anion Gap 11 (12-20); Aspartate Amino Transferase 40 U/L (5-31); Bilirubin Total 0.4 mg/dL (0.0-1.0); Blood Urea Nitrogen 10 mg/dL (9-16); Calcium 9.7 mg/dL (8.4-10.2); Carbon Dioxide 28 mmol/L (22-29); Chloride 105 mmol/L (96-108); Creatinine Clr Calc Pharmacy 80.2; Estimated Glomerular Filt Rate > 60; Glucose Random 94 mg/dL (60-115); HCG Quantitative < 2 mIU/mL; Potassium 4.3 mmol/L (3.3-5.1); Sodium 140 mmol/L (135-145); Total Protein 7.6 g/dL (6.5-8.0)
[2024-09-25 14:08] LABS: Influenza A PCR NEGATIVE (Negative); Influenza B PCR NEGATIVE (Negative); Resp Syncy Virus RNA Qual PCR NEGATIVE (Negative); SARS COV2 PCR INHOUSE NEGATIVE (Negative)
[2024-09-25 19:34] LABS: Lipase 15 U/L (8-78)
[2024-09-25 20:41] VITALS: BP 106/75; PULSE 86; RESP 16; TEMP 37.2; O2SAT 99
[2024-09-25 20:49] LABS: Appearance Urine Turbid; Color Urine Yellow; Glucose Urine UA Negative (Negative); Leukocyte Esterase Urine Negative (Negative); Nitrite Urine Negative (Negative); PH 7.5 (5.0-9.0); Specific Gravity - Urine 1.025 (1.005-1.025); Urine Blood Negative (Negative); Urine Ketones Negative (Negative); Urine Protein Trace mg/dL (Neg-Trace)
[2024-09-25 21:33] VITALS: BP 106/75; PULSE 86; RESP 16; TEMP 37.2; O2SAT 99
== END 2024-09-25 21:34 | disposition home or self-care (01) ==
PROVIDERS: Emergency Medicine; Physician Assistant Medical; Emergency Provider Emergency Medicine; PCP Internal Medicine
DX: N83.202 Unspecified ovarian cyst, left side (principal); R10.32 Left lower quadrant pain; Z95.0 Presence of cardiac pacemaker; Z03.818 Encounter for observation for suspected exposure to other biological agents ruled out
CPT/HCPCS: 0241U; 74176; 80053; 81003; 83690; 83735; 84702; 85025; 99284

== ENCOUNTER → 2024-09-25 20:20 | Outpatient (BNV) | payer MEDICAID, SELFPAY | PROVIDERS: Emergency Provider Emergency Medicine; PCP Internal Medicine; Visit Provider Radiology Diagnostic Radiology | DX: N83.202 Unspecified ovarian cyst, left side (principal) | CPT/HCPCS: 74176 ==

== ENCOUNTER 2024-11-18 15:19 | Outpatient (REF) | payer MEDICAID, SELFPAY ==
--- NOTE | ~2024-11-18 | CT_ITS ---
CLINICAL HISTORY: PAD CT angiography abdomen and pelvis with bilateral lower extremity runoff using IV contrast. 3-D post processing. Comparison: CT/SR - CT ABDOMEN PELVIS W IV CON - 11/18/24 15:[address]/SR - CT ABDOMEN PELVIS WO IV CON - 09/25/24 20:[address]/CA/SR - CT ANGIO ABD AORTA RUNOFF - 02/12/22 17:13 EDT Findings: VASCULAR: ABDOMINAL AORTA: Normal caliber abdominal aorta without plaque, stenosis or dissection. Patent renal arteries, celiac trunk and SMA. Patent common hepatic, splenic and left gastric arteries. Patent mesenteric arcade. Patent ROSELYN. Widely patent common, external and internal iliac arteries. RIGHT LOWER EXTREMITY: Patent common femoral, deep femoral, superficial femoral and popliteal artery. Diminished enhancement of the infrapopliteal vessels. Component may relate to tapering of the contrast bolus. No delayed phase acquisition. Patent anterior tibial artery to the mid to lower leg. Can not confirm patency more distal. Dorsalis pedis not visualized. Patent tibioperoneal trunk. Peroneal artery appears to bifurcate into collateral vessels in the proximal leg and is poorly visualized. Posterior tibial artery appears occluded throughout. LEFT LOWER EXTREMITY: Patent common femoral, deep femoral, superficial femoral and popliteal artery. Anterior tibial arteries is occluded in its entirety. Diminutive although patent posterior tibial artery to the foot. Peroneal artery is occluded. NONVASCULAR: Lower chest, abdomen and pelvis stable to earlier CT abdomen pelvis same day. No acute process evident in the thighs. Surgical change in the medial right leg. No acute appearing abnormality in the regional soft tissues. IMPRESSION: Normal abdominal aorta and major branch vessels. Normal iliac, femoral and popliteal arteries. Infrapopliteal small vessel disease very similar to 2021 CTA. Predominantly collateralized flow to the right foot similar to prior. Occluded left anterior tibial and peroneal arteries with patent posterior tibial artery. Due to small vessel size and tapering of the contrast bolus, assessment of the distal runoff may be better obtained with catheter angiography. This document has been electronically signed by: Francisco Rodas MD on 11/20/2024 07:07:25
--- NOTE | ~2024-11-18 | CT_ITS ---
CLINICAL HISTORY: KIDNEY STONE CT abdomen and pelvis with contrast Comparison: CT/SR - CT ABDOMEN PELVIS WO IV CON - 09/25/24 20:25 EST Findings: Lung bases clear. Heart size normal. Conduction device leads with streak artifact. No pericardial effusion. Gallbladder appears partially contracted although otherwise normal. Liver, spleen, pancreas, adrenals and kidneys are unremarkable. No stones, hydronephrosis or perinephric stranding. Normal abdominal aorta. Patent major branch vessels allowing for technique. Patent hepatic veins, IVC and portal vein. No pathologic adenopathy. Mildly distended stomach with retained contents likely physiologic. Large and small bowel nondilated. No acute perienteric inflammation. Urinary bladder intact. 17 x 14 and 8 x 12 mm follicles within the right ovary. Subcentimeter follicle left ovary. No free pelvic fluid. Uterus within normal limits. Bones and soft tissues unremarkable. Impression: No acute process evident. This document has been electronically signed by: Francisco Rodas MD on 11/20/2024 06:05:07
[2024-11-18] MEDS: iohexoL 350 MG/ML 100 ML INFUS..BTL IV (16:47)
--- OUTSIDE RECORDS SUMMARY | 2024-11-18 18:01 | XMS_ITS | Clinical Summary ---
Author Organization [employer] Address [address] [place] [address] [address] [place] [address] Care Team Providers Care Top Frame Fitter Name Role Phone Dayanara Wallace MD Primary Care Pro vider Social History Tobacco Use Types Packs/Day Years Used Date Smoking Tobacco: Never Assessed Comments Unknown Sex and Gender Information Value Date Recorded Sex Assigned at Female 06/03/2022 10:14 AM EDT Legal Sex Female 10:14 AM EDT Gender Identity Female 06/03/2022 10:14 AM EDT Sexual Orientation Lesbian or [place] 06/03/2022 10 :14 AM EDT Last Filed Vital Signs Vital Sign Reading Time Taken Comments Blood Pressure 124/76 12/01/2020 12:04 AM EDT Pulse 84 12/01/2020 12:04 AM EDT Temperature - - Respiratory Rate - - Oxygen Saturation - - Inhaled Oxygen Concentration - - Weight 53.5 kg (118 lb) 12/01/2020 12:04 AM EDT Height 161.5 cm (5' 3.58 ) 12/01/2020 12:04 AM E DT Body Mass Index 20.52 12/01/2020 12:04 AM EDT Plan of Treatment Health Maintenance Due Date Last Done Comments Depression Screening 1995 Hepatitis B Vaccines (3 of 3 - 3-dose series) 11/30/1996 10/05/1996, 02/02/1996, 1995 Alcohol/Substance Use Screening 2007 Tobacco Screening 2007 Family Planning (PISQ) 12/28/2010 Pap Smear 12/28/2016 DTaP/Tdap/Td Vaccines (7 - Td or Tdap) 09/24/2017 09/24/2007, 09/18/2000, 04/14/1997, Additional history exists COVID-19 Vaccine ( season) 2024 Influenza Vaccine (#1) 2024 4, 07/08/2011, 07/02/2010 Zoster Vaccines (1 of 2) 12/28/2045 RSV Patients and Patients Aged 60 years or older (1 - 1-dose 75+ series) 12/28/2070 HIB Vaccines Completed 04/14/1997, 06/05, 04/22/1996, Additional history exists IPV Vaccines Completed 09/18/2000, 06/05, 04/22/1996, Additional history exists HPV Vaccines Completed 11/12/2012, 12/2010, 07/02/2010 Meningococcal Vaccine Completed 11/12/2012 Hepatitis A Vaccines Aged Out No long er eligible based on patient's age to complete this topic Pneumococcal Vaccine: Pediatrics (0 to 5 Years) and At-Risk Patients (6 to 49) Years) Aged Out No longer eligible based on patient's age to complete this topic RSV under 20 months Aged Out No longe r eligible based on patient's age to complete this topic Rotavirus Vaccines Aged Out No longer eligible based on patient's age to complete this topic Care Teams Top Frame Fitter Relationship Specialty Start Date End Date Dayanara Wallace MD [address] [place] [id number] PCP - General Internal Medicine 03/10/23
== END 2024-11-18 15:20 | disposition home or self-care (01) ==
LOC: HO.CT 15:19
PROVIDERS: PCP Internal Medicine; Visit Provider Internal Medicine
DX: R10.32 Left lower quadrant pain (principal)
CPT/HCPCS: 74177; 75635; Q9967

== ENCOUNTER → 2024-11-18 15:52 | Outpatient (BNV) | payer MEDICAID, SELFPAY | PROVIDERS: PCP Internal Medicine; Visit Provider Radiology Diagnostic Radiology | DX: N83.01 Follicular cyst of right ovary (principal); N83.02 Follicular cyst of left ovary; I73.9 Peripheral vascular disease, unspecified | CPT/HCPCS: 74177; 75635 ==

== ENCOUNTER → 2024-12-15 23:59 | Outpatient (BNV) | payer MEDICAID, SELFPAY ==
--- NOTE | 2024-12-21 20:14 | MHC.OFFVIS ---
Intake Visit Reasons: Remote device check- [employer] Allergies Seasonal Allergies Allergy (Mild, Verified 09/25/24 12:59) Sneezing PFSH Medical History Cardiac resynchronization therapy pacemaker (DEFENCE INTELLIGENCE ANALYST-P) in place PAD (peripheral artery disease) Foot lesion History of cardiac pacemaker Complete heart block Seasonal allergies Pacemaker Surgical History H/O foot surgery Family History Mother Prediabetes Social History Household Members: Family Housing: Apartment Do you presently have visiting nurse or other home services: No Alcohol intake: current Alcohol intake frequency: holidays/special occasions only Alcohol type: wine Patient Tobacco Use Status: Never used Tobacco Substance Use Type: Marijuana service: No Current occupational status: unemployed Female Reproductive History Menstrual Age of Menarche: 13 Office Procedures Cardiac Device Check Cardiac Device Check Details: Date of service- 12/15/2024 ; Battery life >3 years; normal lead parameters; AP 1.8%; EMPLOYEE BENEFITS ATTORNEY 100%; no significant arrhythmias. Overall normal device function. 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
== END ==
PROVIDERS: PCP Internal Medicine; Visit Provider Internal Medicine
DX: I74.3 Embolism and thrombosis of arteries of the lower extremities (principal); Z95.0 Presence of cardiac pacemaker
CPT/HCPCS: 93294

== ENCOUNTER → 2024-12-15 23:59 | Outpatient (BNV) | payer MEDICAID, SELFPAY ==
--- NOTE | 2024-12-20 19:40 | MHC.OFFVIS ---
Intake Visit Reasons: Remote HF monitoring- [employer] Allergies Seasonal Allergies Allergy (Mild, Verified 09/25/24 12:59) Sneezing PFSH Medical History Cardiac resynchronization therapy pacemaker (FOUNTAIN PEN NIBS INSPECTOR-P) in place PAD (peripheral artery disease) Foot lesion History of cardiac pacemaker Complete heart block Seasonal allergies Pacemaker Surgical History H/O foot surgery Family History Mother Prediabetes Social History Household Members: Family Housing: Apartment Do you presently have visiting nurse or other home services: No Alcohol intake: current Alcohol intake frequency: holidays/special occasions only Alcohol type: wine Patient Tobacco Use Status: Never used Tobacco Substance Use Type: Marijuana service: No Current occupational status: unemployed Female Reproductive History Menstrual Age of Menarche: 13 Office Procedures Cardiac Device Check Cardiac Device Check Details: Date of service- 12/15/2024; based on impedance data and physiological variables, there is no evidence of worsening congestive heart failure. [id number] Cardiac Device Interrogation, cardio physiologic monitor Procedure code (CPT) selection complete Assessment & Plan Assessment & Plan (1) Cardiac resynchronization therapy pacemaker (FOUNTAIN PEN NIBS INSPECTOR-P) in place: Code(s): Z95.0 - Presence of cardiac pacemaker Category: Medical (2) Complete heart block: Code(s): I44.2 - Atrioventricular block, complete Category: Medical Plan x Coding Level of Care Code Procedure Only Diagnoses Cardiac resynchronization therapy pacemaker (FOUNTAIN PEN NIBS INSPECTOR-P) in place Z95.0 Complete heart block I44.2 CPT Codes Cardiac Device Check - Cardiac Device 15: [id number] Cardiac Device Interrogation, cardio physiologic monitor ([id number])
== END ==
PROVIDERS: PCP Internal Medicine; Visit Provider Internal Medicine
DX: I44.2 Atrioventricular block, complete (principal); Z95.0 Presence of cardiac pacemaker
CPT/HCPCS: 93297

== ENCOUNTER → 2025-03-23 23:59 | Outpatient (BNV) | payer MEDICAID, SELFPAY ==
--- NOTE | 2025-03-27 11:58 | A.OFFVIS_ITS ---
Intake Visit Reasons: Remote device check- [employer] Allergies Seasonal Allergies Allergy (Mild, Verified 01/20/25 14:36) Sneezing PFSH Medical History Cardiac resynchronization therapy pacemaker (GRADES 6 THROUGH 8 TEACHER-P) in place PAD (peripheral artery disease) Foot lesion History of cardiac pacemaker Complete heart block Seasonal allergies Pacemaker Surgical History (System 01/20/25 @ 14:36 by Samaria Mei) H/O foot surgery Family History Mother Prediabetes Social History (System 01/20/25 @ 14:36 by Samaria Mei) Household Members: Family Housing: Apartment Do you presently have visiting nurse or other home services: No Alcohol intake: current Alcohol intake frequency: holidays/special occasions only Alcohol type: wine Patient Tobacco Use Status: Never used Tobacco Substance Use Type: Marijuana service: No Current occupational status: unemployed Female Reproductive History Menstrual Age of Menarche: 13 Office Procedures Cardiac Device Check Cardiac Device Check Details: Date of service- 03/23/2025 ; Battery life 3 years; normal lead parameters; AP 2.6%; TURBO 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 Overall normal device function. [id number] Cardiac Device Interrogation, pacemaker Procedure code (CPT) selection complete Assessment & Plan Assessment & Plan (1) Cardiac resynchronization therapy pacemaker (GRADES 6 THROUGH 8 TEACHER-P) in place: Code(s): Z95.0 - Presence of cardiac pacemaker Category: Medical (2) Complete heart block: Code(s): I44.2 - Atrioventricular block, complete Category: Medical Plan x Coding Level of Care Code Procedure Only Diagnoses Cardiac resynchronization therapy pacemaker (GRADES 6 THROUGH 8 TEACHER-P) in place Z95.0 Complete heart block I44.2 CPT Codes Cardiac Device Check - Cardiac Device 12: [id number] Cardiac Device Interrogation, pacemaker ([id number])
== END ==
PROVIDERS: PCP Internal Medicine; Visit Provider Internal Medicine
DX: I44.2 Atrioventricular block, complete (principal); Z95.0 Presence of cardiac pacemaker
CPT/HCPCS: 93294

== ENCOUNTER → 2025-07-05 09:24 | Outpatient (BNV) | payer MEDICAID, SELFPAY | PROVIDERS: PCP Internal Medicine; Visit Provider Internal Medicine | DX: I44.2 Atrioventricular block, complete (principal); Z95.0 Presence of cardiac pacemaker | CPT/HCPCS: 93294 ==

== ENCOUNTER → 2025-07-05 09:24 | Outpatient (BNV) | payer MEDICAID, SELFPAY | PROVIDERS: PCP Internal Medicine; Visit Provider Internal Medicine | DX: I44.2 Atrioventricular block, complete (principal); Z95.0 Presence of cardiac pacemaker | CPT/HCPCS: 93297 ==